=== PATIENT | male | born 1950 | race Caucasian/White ===

== ENCOUNTER 2018-08-12 11:21 | Observation (INO) | payer MEDICARE, BC ==
[2018-08-12 12:21] LABS: Hemoglobin 11.6 g/dL (14.0-18.0); Mean Corpuscular HGB CONC 32.1 g/dL (32.0-36.0); Mean Corpuscular Hemoglobin 29.9 pg (27.0-31.0); Mean Corpuscular Volume 93.1 fL (78.0-98.0); Mean Platelet Volume 9.7 fL (7.4-10.4); Platelet Count 224 thou/uL (130-400); RBC Distribution Width 14.8 % (11.5-14.5); Red Blood Cell (RBC) Count 3.86 mill/uL (4.70-6.10)
[2018-08-12 12:32] LABS: ALT (SGPT) 24 U/L (8-55); AST (SGOT) 35 U/L (5-34); Albumin 3.6 g/dL (3.4-4.8); Alkaline Phosphatase 131 U/L (40-150); Anion Gap 19 mmol/L (10-20); BUN (Urea Nitrogen) 100 mg/dL (8.4-25.7); Bilirubin, Total 0.3 mg/dL (0.2-1.2); Calc. Creatinine Clearance 0 mL/min (70-130); Calcium 9.7 mg/dL (7.8-10.44); Carbon Dioxide 18 mmol/L (23-31); Chloride 103 mmol/L (98-107); Estimated GFR-MDRD 19; Globulin 3.7 g/dL (2.4-3.5); Glucose 87 mg/dL (80-115); Potassium 3.9 mmol/L (3.5-5.1); Protein, Total 7.3 g/dL (5.8-8.1); Sodium 136 mmol/L (136-145)
[2018-08-12 12:46] LABS: Anisocytosis SLIGHT = 6-15 cells (100X) (0-5/hpf); Band 6 % (5-11); Lymphocytes 3 % (21-51); MDiff Complete? YES; Monocytes 2 % (0-10); Neutrophil 89 % (42-75); Platelet Morphology Comment Appears Adequate
--- NOTE | 2018-08-12 13:11 | RAD ---
PA AND LATERAL CHEST: Date: 08/12/18 HISTORY: Productive cough and fever. FINDINGS: Heart size within normal limits. There is some minimal parenchymal change in the lingula and a more c onfluent right upper lobe infiltrative process. IMPRESSION: Right upper lobe pneumonia. There is also possibly some early lingular infiltrate present. POS: TPC
[2018-08-12] MEDS ORDERED: cefTRIAXone\\ROCEPHIN 1 GM VIAL ONE (13:42)
[2018-08-12] MEDS ORDERED: Azithromycin 500 MG VIAL ONE (14:26)
[2018-08-12] MEDS ORDERED: HYDROcodone/Acetaminophen 5/325 mg Tablet PO PRN ×2 (15:49)
[2018-08-12] MEDS ORDERED: Ondansetron PF 4 MG/2 ML Vial IVP PRN ×2 (15:49→18:58)
[2018-08-12] MEDS ORDERED: Acetaminophen 325 MG TAB PO PRN (15:49)
[2018-08-12] MEDS ORDERED: Ondansetron ODT 4 MG TAB SL PRN (15:49)
[2018-08-12 16:44] VITALS: BMI 24.0
[2018-08-12] MEDS ORDERED: Ondansetron ODT 4 MG TAB PO PRN (18:58)
[2018-08-12] MEDS ORDERED: Benzonatate 100 MG CAP PO PRN (18:58)
[2018-08-12] MEDS ORDERED: LACTASE 3000 UNIT PO PRN (18:58)
[2018-08-12] MEDS ORDERED: Ibuprofen 200 MG TAB PO PRN (18:58)
[2018-08-12] MEDS ORDERED: Acetaminophen 500 MG TAB PO PRN (18:58)
[2018-08-12] MEDS ORDERED: Diabetic Tussin 200 MG/10 ML UDCUP PO PRN (18:58)
[2018-08-12] MEDS: Sodium Chloride 0.9% 1,000 ML IV SCH (20:10)
[2018-08-12] MEDS ORDERED: cefTRIAXone\\ROCEPHIN 1 GM in Sodium Chloride 0.9% 100 ML IVPB SCH (21:00)
--- NOTE | 2018-08-12 23:54 | HP ---
PRIMARY CARE PROVIDER: Dr. Brian Barakat. CHIEF COMPLAINT: Shortness of breath and cough. HISTORY OF PRESENT ILLNESS: This is a 67-year-old male, who presents to [facility] Emergency Department at the request of his primary care provider after concerns for general weakness, cough, and purulent sputum. The patient states he saw his primary care provider after developing fever, cough, and some chest pain in the right upper chest wall over the last 4 to 5 days. The patient was placed on a Z-Chirag by his primary care provider, which he took for several days. The patient states he continued to feel generally weak, ill, and with intermittent fevers up to 102.8 degrees Fahrenheit. The patient admits he received influenza vaccine this season as well he is current on his pneumonia vaccination. The patient denies any tobacco use or previous pneumonia. The patient denies any specific diarrhea, skin rashes, recent travel history or family members with similar symptoms. In the emergency room, patient underwent general evaluation including chest imaging showing right upper lobe infiltrate concerning for pneumonia. The patient received IV azithromycin and ceftriaxone in addition to 1 L of normal saline. PAST MEDICAL HISTORY: 1. Gastroesophageal reflux disease. 2. Ulcerative colitis. 3. Hypothyroidism. 4. Hyperlipidemia. PAST SURGICAL HISTORY: 1. Status post hemicolectomy due to stricture. 2. Status post bilateral cataract removal. CURRENT MEDICATIONS: 1. Levothyroxine 100 mcg p.o. daily. 2. Citalopram 20 mg p.o. daily. 3. Vitamin B12 1000 mcg p.o. daily. 4. Slow iron 142 mg p.o. b.i.d. 5. Lopid 600 mg p.o. b.i.d. 6. Multivitamin 1 tablet p.o. daily. 7. Lactaid 3000 units p.o. daily p.r.n. 8. Mesalamine 0.375 g four capsules p.o. daily. 9. Protonix 40 mg p.o. b.i.d. ALLERGIES: TO SUSAN INHIBITORS, CLINDAMYCIN, ZETIA, TAMIFLU, AND PENICILLIN. FAMILY HISTORY: No inheritable diseases per patient report. SOCIAL HISTORY: The patient resides in [place], [place]. Retired pharmacist. No current alcohol, tobacco, or illicit drug use. Functional of all activities of daily living. REVIEW OF SYSTEMS: CONSTITUTIONAL: Negative for weight loss or gain, ability to conduct usual activities. SKIN: Negative for rash, itching. EYES: Negative for double vision, pain. ENT/MOUTH: Negative for nose bleeding, neck stiffness, pain, tenderness. CARDIOVASCULAR: Negative for palpitations, dyspnea on exertion, orthopnea. RESPIRATORY: Negative for wheezing, hemoptysis, or night sweats. GASTROINTESTINAL: Negative for poor appetite, abdominal pain, heartburn, nausea, vomiting, constipation, or diarrhea. GENITOURINARY: Negative for urgency, frequency, dysuria, nocturia. MUSCULOSKELETAL: Negative for pain, swelling. NEUROLOGIC/PSYCHIATRIC: Negative for anxiety, depression. ALLERGY/IMMUNOLOGIC: Negative for skin rash, bleeding tendency. Otherwise, negative except as stated per HPI. PHYSICAL EXAMINATION: VITAL SIGNS: Currently, blood pressure 117/78, pulse 85, respiratory rate 16, temperature 97.5 degrees Fahrenheit, O2 saturation 97% on room air. GENERAL APPEARANCE: This is a 67-year-old male, alert and oriented x3, pleasant, conversant, smiling, in no acute distress. HEENT: Pupils are equal, round, reactive to light and accommodation. Extraocular muscles are intact. No scleral icterus. No conjunctival injection. Nares patent. OP is clear. Teeth in good repair. NECK: Supple. No cervical adenopathy. No thyromegaly. No carotid bruits. No JVD appreciated. Cervical spine with full active and passive range of motion. No meningeal signs noted. CHEST: Coarse breath sounds noted in the right upper chest. Left lung field is clear. CARDIOVASCULAR: S1 and S2 without noted murmur, rub, or gallop. ABDOMEN: Rounded, soft, nontender, and nondistended. Bowel sounds are positive in all 4 quadrants. There is no hepatosplenomegaly. No abdominal bruits. No rebound or guarding appreciated. EXTREMITIES: Warm and dry with fair turgor. No clubbing, cyanosis, or asymmetric edema appreciated. Pulses are palpable distally at the dorsalis pedis, posterior tibial, and popliteal arteries bilaterally. Capillary refill less than 2 seconds. NEUROLOGIC: Cranial nerves 2 through 12 are grossly intact. No focal or lateralizing signs appreciated. PERTINENT LABORATORY DATA AND X-RAY FINDINGS: Sodium 136, potassium 3.9, chloride 103, CO2 of 18, BUN 100, creatinine 3.31, estimated GFR of 19, glucose 87, calcium 9.7. AST 35, ALT of 24, alkaline phosphatase 131, albumin 3.6. CBC showed a white blood cell count of 15, hemoglobin 12, hematocrit 36, platelet count 224 with 89% neutrophils, 6% bands. Portable chest x-ray dated 08/12/2018 by my interpretation shows right upper lobe infiltrate consistent with pneumonia. ASSESSMENT AND PLAN: 1. Right upper lobe bacterial pneumonia. The patient will be placed in observation status on the medical floor. Suspect gram-positive cocci. Continue Rocephin 2 g IV q.24 hours with additional azithromycin 500 mg IV q.24 hours. Continue general pulmonary supportive management. 2. Acute kidney injury. Suspect multifactorial in addition to current infectious process. Initiate IV fluids with normal saline at 100 mL/h. Avoid nephrotoxic agents and limit contrast exposure. Repeat creatinine in the a.m. Consider Nephrology consultation if creatinine does not improve with general supportive management and IV fluids. 3. Chronic kidney disease stage 3. See #2 above. Repeat creatinine in the a.m. 4. Hypothyroidism. Continue levothyroxine 100 mcg p.o. daily. 5. Depression. Continue Celexa 20 mg p.o. daily. 6. Prophylaxis. SCDs while in bed. Protonix 40 mg p.o. b.i.d. CODE STATUS: Full. Surrogate medical decision maker is Puma Purdy. Job ID: [id number]
[2018-08-13] MEDS: Levothyroxine Sodium 100 MCG TAB PO SCH (05:27)
[2018-08-13] MEDS: Sodium Chloride 0.9% 1,000 ML IV SCH ×2 (05:28→16:54)
[2018-08-13 06:41] LABS: Anion Gap 15 mmol/L (10-20); BUN (Urea Nitrogen) 83 mg/dL (8.4-25.7); Calc. Creatinine Clearance 35 mL/min (70-130); Carbon Dioxide 15 mmol/L (23-31); Chloride 111 mmol/L (98-107); Estimated GFR-MDRD 26; Glucose 91 mg/dL (80-115); Potassium 4.1 mmol/L (3.5-5.1); Sodium 137 mmol/L (136-145)
[2018-08-13 06:48] LABS: Band 1 % (5-11); Eosinophils 1 % (0-10); Lymphocytes 13 % (21-51); MDiff Complete? YES; Mean Corpuscular HGB CONC 32.4 g/dL (32.0-36.0); Mean Corpuscular Volume 92.7 fL (78.0-98.0); Mean Platelet Volume 9.4 fL (7.4-10.4); Monocytes 3 % (0-10); Myelocyte 5 % (0-0); Neutrophil 77 % (42-75); Platelet Count 200 thou/uL (130-400); RBC Distribution Width 15.2 % (11.5-14.5); Red Blood Cell (RBC) Count 3.32 mill/uL (4.70-6.10); White Blood Cell (WBC) Count 8.7 thou/uL (4.8-10.8)
[2018-08-13] MEDS ORDERED: MESALAMINE PO SCH (09:00)
[2018-08-13] MEDS: Citalopram 20 MG TAB PO SCH (09:33)
[2018-08-13] MEDS: Cyanocobalamin (Vitamin B-12) 1,000 MCG TAB PO SCH (09:33)
[2018-08-13] MEDS: Gemfibrozil 600 MG TAB PO SCH ×2 (09:33→16:54)
[2018-08-13] MEDS ORDERED: Azithromycin 500 MG in Sodium Chloride 0.9% 250 ML 250 ML IVPB SCH (15:00)
[2018-08-13] MEDS ORDERED: cefTRIAXone\\ROCEPHIN 2 GM in Sodium Chloride 0.9% 100 ML IVPB SCH (16:00)
--- NOTE | 2018-08-13 16:49 | PRG ---
DATE OF SERVICE: 08/13/2018 SUBJECTIVE: The patient is a very pleasant 67-year-old male with past medical history significant for hypothyroidism, ulcerative colitis, GERD, and hyperlipidemia, who presented to [facility] Emergency Department at the request of his primary care provider, Dr. Brian Barakat, after the patient developed fever, cough, and pleuritic chest pain over the past 4 to 5 days. The patient has been admitted with right upper lobe community-acquired pneumonia. The patient has responded well to IV antibiotics and his white count is trending down. He is afebrile. He states that he feels much improved. He does not report any further cough. His appetite is good. He is breathing easily. No complaints at this time. OBJECTIVE: VITAL SIGNS: Blood pressure 124/86, O2 saturation 94% on room air, pulse 92, and respirations are 20. The patient is afebrile 98.3 degrees F. GENERAL: The patient is a thin male, lying in bed, no acute distress. NECK: Supple. No carotid bruits. No lymphadenopathy. No JVD. HEENT: Atraumatic and normocephalic. Mucous membranes are moist. CV: S1 and S2. Regular rate and rhythm. No appreciable murmurs, rubs, or gallops. LUNGS: Regular respiratory rate and pattern, overall clear to auscultation, mildly decreased vesicular breath sounds right upper and mid lung gao. ABDOMEN: Soft. Normal bowel sounds. Nontender. EXTREMITIES: No edema. +2 DP pulses bilaterally. SKIN: Warm and dry. No obvious rashes or abrasions. NEUROLOGIC: The patient is alert and oriented x3. Nonfocal. LABORATORY DATA: White blood cell count 8.7 and this is down from 15, hemoglobin 10, and hematocrit 30.8. Sodium 137, potassium 4.1, BUN 83, and creatinine 2.48 , which is down from 3.31. ASSESSMENT: 1. Community-acquired right upper lobe bacterial pneumonia. 2. Acute on chronic renal insufficiency, improving. Creatinine 2.48 today down from 3.31. 3. Chronic kidney disease stage 3. 4. Hypothyroidism. 5. Depression. PLAN: We will continue IV antibiotics and IV fluid for another day. Repeat labs in the morning. I anticipate discharge tomorrow. Continue DVT and GI prophylaxis. We will trend creatinine for another day. Care discussed with Dr. De La Rosa who agrees with the plan. Job ID: [id number] DAVI
[2018-08-14] MEDS: Sodium Chloride 0.9% 1,000 ML IV SCH (03:30)
[2018-08-14] MEDS: Levothyroxine Sodium 100 MCG TAB PO SCH (05:32)
[2018-08-14 07:33] LABS: Anion Gap 13 mmol/L (10-20); BUN (Urea Nitrogen) 53 mg/dL (8.4-25.7); Calc. Creatinine Clearance 51 mL/min (70-130); Calcium 8.6 mg/dL (7.8-10.44); Carbon Dioxide 15 mmol/L (23-31); Chloride 114 mmol/L (98-107); Estimated GFR-MDRD 40; Glucose 90 mg/dL (80-115); Potassium 3.8 mmol/L (3.5-5.1); Sodium 138 mmol/L (136-145)
[2018-08-14] MEDS ORDERED: Ferrous Sulfate 325 MG TAB PO SCH (08:00)
[2018-08-14] MEDS: Gemfibrozil 600 MG TAB PO SCH (08:00)
[2018-08-14] MEDS: Cyanocobalamin (Vitamin B-12) 1,000 MCG TAB PO SCH (08:01)
[2018-08-14] MEDS: Citalopram 20 MG TAB PO SCH (08:01)
[2018-08-14 08:15] LABS: Anion Gap 15 mmol/L (10-20); BUN (Urea Nitrogen) 52 mg/dL (8.4-25.7); Calc. Creatinine Clearance 49 mL/min (70-130); Carbon Dioxide 13 mmol/L (23-31); Chloride 115 mmol/L (98-107); Estimated GFR-MDRD 38; Glucose 90 mg/dL (80-115); Potassium 3.9 mmol/L (3.5-5.1); Sodium 139 mmol/L (136-145)
[2018-08-14 08:26] LABS: #Basophils 0.1 thou/uL (0.0-0.2); #Eosinphils 0.1 thou/uL (0.0-0.7); #Monocytes 0.5 thou/uL (0.11-0.59); #Neutrophils 4.2 thou/uL (1.40-6.50); %Eosinophils 1.6 % (0.0-10.0); %Lymphocytes 16.5 % (21.0-51.0); %Monocytes 8.3 % (0.0-10.0); %Neutrophils 72.5 % (42.0-75.0); Hemoglobin 9.9 g/dL (14.0-18.0); Mean Corpuscular HGB CONC 32.6 g/dL (32.0-36.0); Mean Corpuscular Hemoglobin 29.8 pg (27.0-31.0); Mean Corpuscular Volume 91.4 fL (78.0-98.0); Platelet Count 192 thou/uL (130-400); RBC Distribution Width 15.3 % (11.5-14.5); White Blood Cell (WBC) Count 5.9 thou/uL (4.8-10.8)
[2018-08-14 08:41] LABS: #Eosinphils 0.1 thou/uL (0.0-0.7); #Lymphocytes 0.8 thou/uL (1.20-3.40); #Monocytes 0.5 thou/uL (0.11-0.59); #Neutrophils 4.2 thou/uL (1.40-6.50); %Basophils 0.6 % (0.0-1.0); %Eosinophils 1.2 % (0.0-10.0); %Lymphocytes 14.1 % (21.0-51.0); Hemoglobin 9.4 g/dL (14.0-18.0); Mean Corpuscular HGB CONC 31.7 g/dL (32.0-36.0); Mean Corpuscular Hemoglobin 29.2 pg (27.0-31.0); Mean Corpuscular Volume 92.2 fL (78.0-98.0); Mean Platelet Volume 9.1 fL (7.4-10.4); Platelet Count 194 thou/uL (130-400); RBC Distribution Width 15.1 % (11.5-14.5); Red Blood Cell (RBC) Count 3.21 mill/uL (4.70-6.10); White Blood Cell (WBC) Count 5.6 thou/uL (4.8-10.8)
[2018-08-14 14:01] VITALS: BP 125/80; TEMP 98
--- NOTE | 2018-08-14 20:19 | DIS ---
DATE OF ADMISSION: 08/12/2018 DATE OF DISCHARGE: 08/14/2018 ALLERGIES: SUSAN INHIBITORS, CLINDAMYCIN, ZETIA, TAMIFLU, AND PENICILLIN. CHIEF COMPLAINT: Shortness of breath, cough, fever, and chills. FINAL DIAGNOSES: 1. Community-acquired right upper lobe bacterial pneumonia. 2. Acute on chronic renal insufficiency, presenting creatinine 3.31, discharge creatinine is baseline at 1.77. 3. Chronic kidney disease stage 3. 4. Hypothyroidism. 5. Depression. 6. Gastroesophageal reflux disease. 7. Ulcerative colitis, stable. PROCEDURES PERFORMED: None. LABORATORY RESULTS: White count on arrival to the hospital was 15,000 and now is 5.9, hemoglobin 9.9, and hematocrit 30.2. Sodium 139, potassium 3.9, chloride 115, carbon dioxide 13, anion gap 15, BUN 52, creatinine 1.77, GFR 38, glucose 90, AST 35, ALT 24, and alkaline phosphatase 131. IMAGING RESULTS: Chest x-ray performed on August 12, 2018, showed right upper lobe pneumonia with some possible early lingular infiltrate present. CONSULTATIONS: None. VITAL SIGNS: Blood pressure 125/78. The patient has been afebrile throughout his stay. Pulse is 88, respirations 20, and O2 saturation is 96%. HOSPITAL COURSE: The patient is a very pleasant 67-year-old male with past medical history significant for hypothyroidism, ulcerative colitis, GERD, and hyperlipidemia, who presented to [facility] at the behest of his primary care provider, Dr. Brian Barakat, after the patient developed fever, cough, and pleuritic chest pain over the past several days. The patient was initially treated with azithromycin; however, his symptoms continue to worsen with T-max of 101.6. On admission to the hospital, chest x-ray, as noted above, showed right upper lobe pneumonia. The patient was initiated on IV antibiotics with Rocephin and Zithromax, with good response. His white count trended down, and he remained afebrile throughout his stay. His presenting symptoms of cough, fever, and chills have resolved. The patient has remained hemodynamically stable. He denies any further cough. His appetite has been good. He denies any nausea or vomiting. He has ambulated the room without issue. He did have a mild nosebleed on the morning of this interview, but it did completely resolve. PHYSICAL EXAMINATION: GENERAL: The patient is a thin male, in no acute distress. Breathing easily on room air. HEENT: Atraumatic and normocephalic. Eye movements intact. Mucous membranes are moist. NECK: Supple. No lymphadenopathy. No JVD. No carotid bruits. Trachea is midline. RESPIRATORY: Regular respiratory rate and pattern. Overall clear to auscultation with no rhonchi, wheezes, or crackles, he does have mildly decreased vesicular breath sounds in the right upper and mid lung gao. ABDOMEN: Soft and nontender. Positive bowel sounds. EXTREMITIES: No edema. +2 DP pulses bilaterally. SKIN: Warm and dry. No obvious rashes or abrasions. NEUROLOGIC: The patient is alert and oriented x3. Nonfocal. CONDITION AT DISCHARGE: Stable. DISCHARGE MEDICATIONS: He will continue his home medications including; 1. Celexa 20 mg 1 tablet p.o. daily. 2. Vitamin B12 supplement 1000 mcg p.o. daily. 3. Ferrous sulfate 142 mg p.o. b.i.d. 4. Gemfibrozil 600 mg p.o. b.i.d. before meals. 5. Iron, C, B12, and folic acid supplement 1 tablet p.o. daily. 6. Lactase 3000 unit p.o. p.r.n. 7. Levothyroxine 100 mcg 1 tablet p.o. daily. 8. Mesalamine 0.375 g capsule extended release 4 capsules p.o. daily. 9. Pantoprazole 40 mg tablet 1 tablet p.o. b.i.d. 10. He will be discharged on levofloxacin 750 mg tablet 1 p.o. for the next 5 days. DISCHARGE DISPOSITION: Home. PLAN: The patient will continue his course of antibiotics for community-acquired pneumonia. He will continue Mucinex as well. The patient has been afebrile and feels well. He will follow up with his primary care provider, Dr. Brian Barakat. He will continue to monitor his symptoms and return to the hospital with any fever or chills. Job ID: [id number]
== END 2018-08-14 15:31 | disposition home or self-care (01) ==
LOC: ERS 11:21 → T4-A 15:34
PROVIDERS: ADMIT Family Medicine; ATTEND Family Medicine
DX: J15.9 Unspecified bacterial pneumonia (principal); N18.3 Chronic kidney disease, stage 3 (moderate); N17.9 Acute kidney failure, unspecified; E03.9 Hypothyroidism, unspecified; F32.9 Major depressive disorder, single episode, unspecified; K21.9 Gastro-esophageal reflux disease without esophagitis; K51.90 Ulcerative colitis, unspecified, without complications; E78.5 Hyperlipidemia, unspecified; Z88.8 Allergy status to other drugs, medicaments and biological substances; Z88.1 Allergy status to other antibiotic agents; Z88.0 Allergy status to penicillin; Z79.2 Long term (current) use of antibiotics; Z79.899 Other long term (current) drug therapy; Z98.890 Other specified postprocedural states
CPT/HCPCS: 71046; 80048 ×3; 80053; 85007; 85025 ×3; 85027; 94760; 96361 ×3; 96365; 96366; 96375; 99285; G0378 ×2; 36415; J0456; J0696; J7050

== ENCOUNTER 2021-10-09 10:01 | Inpatient (IN) | payer MEDICARE, BC ==
[2021-10-09] MEDS ORDERED: Furosemide 20 MG/2 ML VIAL ONE (11:01)
[2021-10-09] MEDS ORDERED: Furosemide 40 MG/4 ML VIAL ONE (11:01)
[2021-10-09 11:09] LABS: #Basophils 0.1 thou/uL (0.0-0.2); #Eosinphils 0.2 thou/uL (0.0-0.7); #Lymphocytes 0.6 thou/uL (1.20-3.40); #Monocytes 0.7 thou/uL (0.11-0.59); #Neutrophils 5.9 thou/uL (1.40-6.50); %Basophils 1.5 % (0.0-1.0); %Eosinophils 2.1 % (0.0-10.0); %Lymphocytes 8.5 % (21.0-51.0); %Monocytes 8.9 % (0.0-10.0); %Neutrophils 78.9 % (42.0-75.0); Hemoglobin 13.5 g/dL (14.0-18.0); Mean Corpuscular HGB CONC 31.4 g/dL (32.0-36.0); Mean Corpuscular Hemoglobin 30.8 pg (27.0-31.0); Mean Corpuscular Volume 97.9 fL (78.0-98.0); Mean Platelet Volume 8.7 fL (7.4-10.4); Platelet Count 285 thou/uL (130-400); RBC Distribution Width 15.5 % (11.5-14.5); Red Blood Cell (RBC) Count 4.39 mill/uL (4.70-6.10); White Blood Cell (WBC) Count 7.5 thou/uL (4.8-10.8)
[2021-10-09 11:20] LABS: INR-International Normal Ratio 1.3; Prothrombin Time 16.6 sec (12.0-14.7)
[2021-10-09 11:31] LABS: ALT (SGPT) 32 U/L (8-55); AST (SGOT) 65 U/L (5-34); Albumin 4.2 g/dL (3.4-4.8); Alkaline Phosphatase 121 U/L (40-110); Anion Gap 20 mmol/L (10-20); BUN (Urea Nitrogen) 18 mg/dL (8.4-25.7); Bilirubin, Total 0.7 mg/dL (0.2-1.2); Calc. Creatinine Clearance 0 mL/min (70-130); Calcium 9.1 mg/dL (7.8-10.44); Carbon Dioxide 18 mmol/L (23-31); Chloride 108 mmol/L (98-107); Globulin 3.4 g/dL (2.4-3.5); Glucose 97 mg/dL (83-110); Magnesium 2.3 mg/dL (1.6-2.6); Potassium 5.1 mmol/L (3.5-5.1); Protein, Total 7.6 g/dL (5.8-8.1); Sodium 141 mmol/L (136-145)
[2021-10-09 11:39] LABS: Bacteria/HPF None Seen HPF (None Seen); Bilirubin Negative (Negative); Blood, Urine Negative (Negative); Clarity Clear (Clear); Glucose, Urine (Dipstick) Normal (Negative); Ketone, Urine Negative (Negative); Leukocyte 25 Leu/uL (Negative); Nitrite Negative (Negative); Protein, Urine (Dipstick) 200 mg/dL (Neg-Trace); RBC/HPF 0-3 HPF (0-3); Specific Gravity, Urine 1.019 (1.002-1.036); Squamous Epithelial None Seen HPF (0-3); Urobilinogen Normal mg/dL (Less than 2)
[2021-10-09 12:01] LABS: CKMB 8.3 ng/mL (0-6.6)
[2021-10-09 14:41] VITALS: BMI 31.8
[2021-10-09 14:46] LABS: Troponin I 0.066 ng/mL (< 0.028)
[2021-10-09 16:43] LABS: Creatinine, Urine Less than 20.00 mg/dL (63-166); Protein, Urine Random Quant 42 mg/dL (1-14); Sodium, Urine 125 mmol/L (Not Available); Urea Nitrogen, Random Urine 108 mg/dl
[2021-10-09] MEDS: Gemfibrozil 600 MG TAB PO SCH (17:03)
[2021-10-09] MEDS: Furosemide 40 MG/4 ML VIAL SLOW IVP SCH (20:23)
[2021-10-09] MEDS: Sodium Bicarbonate Tab 325 MG TAB PO SCH (20:31)
[2021-10-09] MEDS: Heparin 5,000 UNITS/ML VIAL SC SCH (20:32)
[2021-10-09] MEDS: Acetaminophen 325 MG TAB PO PRN (20:38)
[2021-10-09 22:49] LABS: SARS-CoV-2 PCR by NAA Not Detected (NotDetected)
[2021-10-10 04:36] LABS: #Basophils 0.1 thou/uL (0.0-0.2); #Eosinphils 0.4 thou/uL (0.0-0.7); #Lymphocytes 0.7 thou/uL (1.20-3.40); #Monocytes 0.9 thou/uL (0.11-0.59); %Basophils 1.2 % (0.0-1.0); %Eosinophils 4.9 % (0.0-10.0); %Lymphocytes 10.4 % (21.0-51.0); %Monocytes 12.6 % (0.0-10.0); Hemoglobin 12.3 g/dL (14.0-18.0); Mean Corpuscular Hemoglobin 31.2 pg (27.0-31.0); Mean Corpuscular Volume 97.7 fL (78.0-98.0); Mean Platelet Volume 8.4 fL (7.4-10.4); Platelet Count 282 thou/uL (130-400); RBC Distribution Width 15.6 % (11.5-14.5); Red Blood Cell (RBC) Count 3.93 mill/uL (4.70-6.10); White Blood Cell (WBC) Count 7.1 thou/uL (4.8-10.8)
[2021-10-10] MEDS ORDERED: Electrolyte Replacement Protocol FS PRN (05:30)
[2021-10-10] MEDS ORDERED: Furosemide 40 MG/4 ML VIAL SLOW IVP SCH (06:00)
[2021-10-10 06:29] LABS: Albumin 3.4 g/dL (3.4-4.8)
[2021-10-10 06:30] LABS: Chloride 106 mmol/L (98-107); Sodium 142 mmol/L (136-145)
[2021-10-10 06:31] LABS: Calcium 8.6 mg/dL (7.8-10.44)
[2021-10-10 06:32] LABS: Globulin 2.2 g/dL (2.4-3.5); Glucose 97 mg/dL (83-110); Triglycerides 83 mg/dL (Less than 150)
[2021-10-10 06:33] LABS: Anion Gap 16 mmol/L (10-20); Carbon Dioxide 23 mmol/L (23-31)
[2021-10-10 06:34] LABS: Bilirubin, Total 0.6 mg/dL (0.2-1.2)
[2021-10-10 06:35] LABS: Alkaline Phosphatase 97 U/L (40-110); Calc. Creatinine Clearance 62 mL/min (70-130)
[2021-10-10 06:36] LABS: BUN (Urea Nitrogen) 20 mg/dL (8.4-25.7)
[2021-10-10 06:37] LABS: AST (SGOT) 27 U/L (5-34); Cardiac Risk 2.9 (Less than 4.5); Cholesterol 88 mg/dl (< 200 Desired); HDL Cholesterol 30 mg/dL (>60 Neg Risk); LDL Cholesterol, Calculated 41 mg/dL
[2021-10-10 06:38] LABS: ALT (SGPT) 22 U/L (8-55)
[2021-10-10 06:43] LABS: Potassium 2.9 mmol/L (3.5-5.1); Protein, Total 5.6 g/dL (5.8-8.1)
[2021-10-10] MEDS ORDERED: Magnesium 2 GM/50 ML(in water) 2 GM in Premix Bag 1 BAG IVPB SCH (06:45)
[2021-10-10] MEDS: Levothyroxine Sodium 100 MCG TAB PO SCH (07:09)
[2021-10-10] MEDS: Furosemide 40 MG/4 ML VIAL SLOW IVP SCH ×3 (07:10→21:51)
[2021-10-10] MEDS: Potassium Chloride 20 MEQ TAB PO SCH ×2 (07:23→13:51)
[2021-10-10] MEDS: Aspirin 81 mg Enteric Coated Tablet PO SCH (08:11)
[2021-10-10] MEDS: Citalopram 20 MG TAB PO SCH (08:11)
[2021-10-10] MEDS: Heparin 5,000 UNITS/ML VIAL SC SCH ×2 (08:12→20:54)
[2021-10-10] MEDS: Multivitamin W/ Minerals 1 TAB PO SCH (08:14)
[2021-10-10] MEDS: Sodium Bicarbonate Tab 325 MG TAB PO SCH ×2 (08:15→20:53)
[2021-10-10] MEDS ORDERED: Spironolactone 100 MG TAB PO SCH (08:15)
[2021-10-10] MEDS: Gemfibrozil 600 MG TAB PO SCH ×2 (08:19→19:37)
[2021-10-10] MEDS ORDERED: MESALAMINE 0.375 GM PO SCH (09:00)
[2021-10-10] MEDS ORDERED: Potassium Chloride 20 MEQ TAB PO SCH ×2 (14:00→22:00)
[2021-10-10] MEDS ORDERED: Polyethylene Glycol 3350 17 GM Packet PO PRN (16:26)
[2021-10-10] MEDS ORDERED: Sodium Chloride 0.65% Nasal 44 ML BOT EA NARE PRN (18:26)
[2021-10-10 18:54] LABS: Anion Gap 15 mmol/L (10-20); BUN (Urea Nitrogen) 22 mg/dL (8.4-25.7); Calc. Creatinine Clearance 60 mL/min (70-130); Calcium 9.1 mg/dL (7.8-10.44); Carbon Dioxide 29 mmol/L (23-31); Chloride 102 mmol/L (98-107); Glucose 134 mg/dL (83-110); Potassium 3.2 mmol/L (3.5-5.1); Sodium 143 mmol/L (136-145)
[2021-10-10] MEDS: Senokot S 8.6-50 MG TAB PO SCH (20:54)
[2021-10-11 04:50] LABS: #Basophils 0.1 thou/uL (0.0-0.2); #Eosinphils 0.3 thou/uL (0.0-0.7); #Lymphocytes 0.6 thou/uL (1.20-3.40); #Monocytes 0.9 thou/uL (0.11-0.59); #Neutrophils 5.7 thou/uL (1.40-6.50); %Basophils 1.4 % (0.0-1.0); %Eosinophils 4.1 % (0.0-10.0); %Lymphocytes 8.5 % (21.0-51.0); %Monocytes 11.1 % (0.0-10.0); %Neutrophils 74.9 % (42.0-75.0); Hemoglobin 12.8 g/dL (14.0-18.0); Mean Corpuscular HGB CONC 31.8 g/dL (32.0-36.0); Mean Corpuscular Hemoglobin 30.9 pg (27.0-31.0); Mean Platelet Volume 8.3 fL (7.4-10.4); Platelet Count 292 thou/uL (130-400); RBC Distribution Width 15.3 % (11.5-14.5); Red Blood Cell (RBC) Count 4.14 mill/uL (4.70-6.10); White Blood Cell (WBC) Count 7.6 thou/uL (4.8-10.8)
[2021-10-11] MEDS: Levothyroxine Sodium 100 MCG TAB PO SCH (05:06)
[2021-10-11] MEDS: Furosemide 40 MG/4 ML VIAL SLOW IVP SCH ×2 (05:06→14:14)
[2021-10-11 05:14] LABS: Anion Gap 18 mmol/L (10-20); BUN (Urea Nitrogen) 20 mg/dL (8.4-25.7); Calc. Creatinine Clearance 59 mL/min (70-130); Calcium 8.5 mg/dL (7.8-10.44); Carbon Dioxide 26 mmol/L (23-31); Chloride 101 mmol/L (98-107); Glucose 108 mg/dL (83-110); Magnesium 2.1 mg/dL (1.6-2.6); Phosphorus 3.1 mg/dL (2.3-4.7); Potassium 3.1 mmol/L (3.5-5.1); Sodium 142 mmol/L (136-145)
[2021-10-11] MEDS ORDERED: Potassium Chloride 20 MEQ TAB PO SCH (06:30)
[2021-10-11] MEDS: Potassium Chloride 20 MEQ TAB PO SCH ×3 (06:33→22:46)
[2021-10-11] MEDS: Citalopram 20 MG TAB PO SCH (08:51)
[2021-10-11] MEDS: Spironolactone 100 MG TAB PO SCH (08:51)
[2021-10-11] MEDS: Multivitamin W/ Minerals 1 TAB PO SCH (08:51)
[2021-10-11] MEDS: Aspirin 81 mg Enteric Coated Tablet PO SCH (08:52)
[2021-10-11] MEDS: Gemfibrozil 600 MG TAB PO SCH ×2 (08:52→18:07)
[2021-10-11] MEDS: Senokot S 8.6-50 MG TAB PO SCH ×2 (08:52→22:49)
[2021-10-11] MEDS: Heparin 5,000 UNITS/ML VIAL SC SCH ×2 (08:53→22:48)
[2021-10-11] MEDS: Sodium Bicarbonate Tab 325 MG TAB PO SCH ×2 (09:34→22:47)
[2021-10-11] MEDS ORDERED: Albumin 25% 25 GM/100 ML BOT IVPB STA (14:04)
[2021-10-11 17:23] LABS: Chloride 96 mmol/L (98-107); Potassium 3.4 mmol/L (3.5-5.1); Sodium 139 mmol/L (136-145)
[2021-10-11 17:24] LABS: Calcium 8.8 mg/dL (7.8-10.44); Glucose 130 mg/dL (83-110)
[2021-10-11 17:26] LABS: Anion Gap 17 mmol/L (10-20); Carbon Dioxide 29 mmol/L (23-31)
[2021-10-11 17:28] LABS: Calc. Creatinine Clearance 52 mL/min (70-130)
[2021-10-11 17:29] LABS: BUN (Urea Nitrogen) 22 mg/dL (8.4-25.7)
[2021-10-11] MEDS ORDERED: Tamsulosin HCl 0.4 MG CAP PO SCH (21:00)
[2021-10-12] MEDS: Levothyroxine Sodium 100 MCG TAB PO SCH (05:10)
[2021-10-12 05:37] LABS: #Eosinphils 0.4 thou/uL (0.0-0.7); #Lymphocytes 0.9 thou/uL (1.20-3.40); #Monocytes 0.8 thou/uL (0.11-0.59); #Neutrophils 4.3 thou/uL (1.40-6.50); %Basophils 0.3 % (0.0-1.0); %Eosinophils 6.8 % (0.0-10.0); %Lymphocytes 14.3 % (21.0-51.0); %Monocytes 12.3 % (0.0-10.0); %Neutrophils 66.3 % (42.0-75.0); Hemoglobin 13.2 g/dL (14.0-18.0); Mean Corpuscular HGB CONC 32.6 g/dL (32.0-36.0); Mean Corpuscular Hemoglobin 31.7 pg (27.0-31.0); Mean Corpuscular Volume 97.4 fL (78.0-98.0); Mean Platelet Volume 8.5 fL (7.4-10.4); Platelet Count 311 thou/uL (130-400); RBC Distribution Width 15.2 % (11.5-14.5); Red Blood Cell (RBC) Count 4.16 mill/uL (4.70-6.10); White Blood Cell (WBC) Count 6.5 thou/uL (4.8-10.8)
[2021-10-12 06:19] LABS: Anion Gap 16 mmol/L (10-20); BUN (Urea Nitrogen) 24 mg/dL (8.4-25.7); Calc. Creatinine Clearance 53 mL/min (70-130); Calcium 8.4 mg/dL (7.8-10.44); Carbon Dioxide 30 mmol/L (23-31); Chloride 101 mmol/L (98-107); Glucose 117 mg/dL (83-110); Magnesium 2.2 mg/dL (1.6-2.6); Potassium 3.6 mmol/L (3.5-5.1); Sodium 143 mmol/L (136-145)
[2021-10-12] MEDS: Heparin 5,000 UNITS/ML VIAL SC SCH ×2 (08:24→20:29)
[2021-10-12] MEDS: Sodium Bicarbonate Tab 325 MG TAB PO SCH (08:25)
[2021-10-12] MEDS: Multivitamin W/ Minerals 1 TAB PO SCH (08:25)
[2021-10-12] MEDS: Potassium Chloride 20 MEQ TAB PO SCH (08:25)
[2021-10-12] MEDS: Senokot S 8.6-50 MG TAB PO SCH ×2 (08:25→20:30)
[2021-10-12] MEDS: Gemfibrozil 600 MG TAB PO SCH ×2 (08:26→16:25)
[2021-10-12] MEDS: Spironolactone 100 MG TAB PO SCH (08:26)
[2021-10-12] MEDS: Aspirin 81 mg Enteric Coated Tablet PO SCH (08:26)
[2021-10-12] MEDS: Citalopram 20 MG TAB PO SCH (08:26)
[2021-10-12] MEDS ORDERED: Furosemide 40 MG/4 ML VIAL SLOW IVP SCH (09:00)
[2021-10-12] MEDS: Carvedilol 3.125 MG TAB PO SCH (16:25)
[2021-10-13] MEDS: Levothyroxine Sodium 100 MCG TAB PO SCH (05:11)
[2021-10-13 06:06] LABS: Anion Gap 15 mmol/L (10-20); BUN (Urea Nitrogen) 29 mg/dL (8.4-25.7); Calc. Creatinine Clearance 56 mL/min (70-130); Calcium 8.8 mg/dL (7.8-10.44); Carbon Dioxide 31 mmol/L (23-31); Chloride 99 mmol/L (98-107); Glucose 109 mg/dL (83-110); Potassium 4.2 mmol/L (3.5-5.1); Sodium 141 mmol/L (136-145)
[2021-10-13] MEDS: Aspirin 81 mg Enteric Coated Tablet PO SCH (08:13)
[2021-10-13] MEDS: Citalopram 20 MG TAB PO SCH (08:13)
[2021-10-13] MEDS: Heparin 5,000 UNITS/ML VIAL SC SCH ×2 (08:14→21:05)
[2021-10-13] MEDS: Carvedilol 3.125 MG TAB PO SCH ×2 (08:14→17:45)
[2021-10-13] MEDS: Spironolactone 100 MG TAB PO SCH (08:14)
[2021-10-13] MEDS: Gemfibrozil 600 MG TAB PO SCH ×2 (08:14→17:45)
[2021-10-13] MEDS: Multivitamin W/ Minerals 1 TAB PO SCH (08:14)
[2021-10-13] MEDS: Senokot S 8.6-50 MG TAB PO SCH ×2 (08:29→21:03)
[2021-10-13] MEDS ORDERED: Torsemide 20 MG TAB PO SCH (09:00)
[2021-10-14] MEDS: Acetaminophen 325 MG TAB PO PRN ×2 (02:05→17:51)
[2021-10-14] MEDS: Levothyroxine Sodium 100 MCG TAB PO SCH (05:09)
[2021-10-14 05:51] LABS: Anion Gap 16 mmol/L (10-20); BUN (Urea Nitrogen) 33 mg/dL (8.4-25.7); Calc. Creatinine Clearance 51 mL/min (70-130); Calcium 8.6 mg/dL (7.8-10.44); Carbon Dioxide 29 mmol/L (23-31); Chloride 97 mmol/L (98-107); Glucose 123 mg/dL (83-110); Magnesium 2.3 mg/dL (1.6-2.6); Potassium 4.1 mmol/L (3.5-5.1); Sodium 138 mmol/L (136-145)
[2021-10-14] MEDS ORDERED: Torsemide 20 MG TAB PO SCH (09:00)
[2021-10-14] MEDS: Gemfibrozil 600 MG TAB PO SCH ×2 (09:09→17:46)
[2021-10-14] MEDS: Aspirin 81 mg Enteric Coated Tablet PO SCH (09:09)
[2021-10-14] MEDS: Spironolactone 100 MG TAB PO SCH (09:09)
[2021-10-14] MEDS: Carvedilol 3.125 MG TAB PO SCH ×2 (09:09→17:47)
[2021-10-14] MEDS: Multivitamin W/ Minerals 1 TAB PO SCH (09:10)
[2021-10-14] MEDS: Citalopram 20 MG TAB PO SCH (09:10)
[2021-10-14] MEDS: Heparin 5,000 UNITS/ML VIAL SC SCH ×2 (09:10→22:11)
[2021-10-14] MEDS: Senokot S 8.6-50 MG TAB PO SCH ×2 (09:23→22:10)
[2021-10-15 04:53] LABS: #Basophils 0.1 thou/uL (0.0-0.2); #Eosinphils 0.6 thou/uL (0.0-0.7); #Monocytes 0.7 thou/uL (0.11-0.59); #Neutrophils 3.3 thou/uL (1.40-6.50); %Basophils 1.3 % (0.0-1.0); %Eosinophils 10.5 % (0.0-10.0); %Lymphocytes 17.8 % (21.0-51.0); %Monocytes 11.7 % (0.0-10.0); %Neutrophils 58.7 % (42.0-75.0); Hemoglobin 13.7 g/dL (14.0-18.0); Mean Corpuscular HGB CONC 31.1 g/dL (32.0-36.0); Mean Corpuscular Hemoglobin 30.6 pg (27.0-31.0); Mean Corpuscular Volume 98.4 fL (78.0-98.0); Mean Platelet Volume 8.3 fL (7.4-10.4); Platelet Count 352 thou/uL (130-400); RBC Distribution Width 14.7 % (11.5-14.5); Red Blood Cell (RBC) Count 4.48 mill/uL (4.70-6.10); White Blood Cell (WBC) Count 5.7 thou/uL (4.8-10.8)
[2021-10-15 05:17] LABS: Anion Gap 16 mmol/L (10-20); BUN (Urea Nitrogen) 39 mg/dL (8.4-25.7); Calc. Creatinine Clearance 51 mL/min (70-130); Calcium 9.1 mg/dL (7.8-10.44); Carbon Dioxide 27 mmol/L (23-31); Chloride 98 mmol/L (98-107); Glucose 111 mg/dL (83-110); Magnesium 2.5 mg/dL (1.6-2.6); Potassium 4.2 mmol/L (3.5-5.1); Sodium 137 mmol/L (136-145)
[2021-10-15] MEDS: Levothyroxine Sodium 100 MCG TAB PO SCH (05:21)
[2021-10-15] MEDS: Carvedilol 3.125 MG TAB PO SCH ×2 (08:54→16:29)
[2021-10-15] MEDS: Gemfibrozil 600 MG TAB PO SCH ×2 (08:54→16:29)
[2021-10-15] MEDS: Heparin 5,000 UNITS/ML VIAL SC SCH ×2 (08:55→20:38)
[2021-10-15] MEDS: Aspirin 81 mg Enteric Coated Tablet PO SCH (08:55)
[2021-10-15] MEDS: Citalopram 20 MG TAB PO SCH (08:55)
[2021-10-15] MEDS: Multivitamin W/ Minerals 1 TAB PO SCH (08:55)
[2021-10-15] MEDS: Senokot S 8.6-50 MG TAB PO SCH ×2 (09:42→20:38)
[2021-10-15] MEDS ORDERED: Communication Order-Pharmacy FS SCH (12:30)
[2021-10-15] MEDS: Acetaminophen 325 MG TAB PO PRN (16:47)
[2021-10-16 05:00] LABS: Anion Gap 15 mmol/L (10-20); BUN (Urea Nitrogen) 40 mg/dL (8.4-25.7); Calc. Creatinine Clearance 52 mL/min (70-130); Carbon Dioxide 24 mmol/L (23-31); Chloride 101 mmol/L (98-107); Potassium 4.1 mmol/L (3.5-5.1); Sodium 136 mmol/L (136-145)
[2021-10-16 05:01] LABS: Calcium 8.9 mg/dL (7.8-10.44); Glucose 141 mg/dL (83-110)
[2021-10-16] MEDS: Levothyroxine Sodium 100 MCG TAB PO SCH (05:31)
[2021-10-16] MEDS: Aspirin 81 mg Enteric Coated Tablet PO SCH (05:32)
[2021-10-16] MEDS: Carvedilol 3.125 MG TAB PO SCH ×2 (05:32→17:51)
[2021-10-16] MEDS: Gemfibrozil 600 MG TAB PO SCH ×2 (05:32→17:51)
[2021-10-16] MEDS: Citalopram 20 MG TAB PO SCH (05:32)
[2021-10-16] MEDS ORDERED: Acetylcysteine 10% 100 MG/ML 30 ml Vial PO SCH (07:15)
[2021-10-16] MEDS: Heparin 5,000 UNITS/ML VIAL SC SCH ×2 (07:24→20:51)
[2021-10-16] MEDS: Senokot S 8.6-50 MG TAB PO SCH ×2 (07:24→20:54)
[2021-10-16] MEDS: Multivitamin W/ Minerals 1 TAB PO SCH (07:24)
[2021-10-16] MEDS ORDERED: Heparin 10,000 UNITS/ 10 ML VIAL ONE (07:30)
[2021-10-16] MEDS ORDERED: Verapamil 5 MG/2 ML VIAL ONE (07:30)
[2021-10-16] MEDS ORDERED: Nitroglycerin 100MG/250ML BOT 250 ML ONE (07:30)
[2021-10-16] MEDS: Sodium Chloride 0.9% 1,000 ML IV SCH ×2 (07:32→18:34)
[2021-10-16] MEDS ORDERED: Midazolam HCl 2 mg/2 ml Vial ONE (08:57)
[2021-10-16] MEDS ORDERED: Acetaminophen/Codeine 30-300mg Tablet PO PRN ×2 (09:55)
[2021-10-16] MEDS ORDERED: Sodium Chloride 0.9% 200 ML IV PRN (09:55)
[2021-10-16] MEDS ORDERED: Nitroglycerin 0.4 MG TAB (25 Tab Bottle) SL PRN (09:55)
[2021-10-16 12:03] LABS: SARS-CoV-2 PCR by NAA Not Detected (NotDetected)
[2021-10-16] MEDS ORDERED: Iopamidol 370 76% 100 ML VIAL ONE (14:32)
[2021-10-17] MEDS: Sodium Chloride 0.9% 1,000 ML IV SCH (04:43)
[2021-10-17 04:55] LABS: Anion Gap 13 mmol/L (10-20); BUN (Urea Nitrogen) 37 mg/dL (8.4-25.7); Calc. Creatinine Clearance 59 mL/min (70-130); Calcium 8.8 mg/dL (7.8-10.44); Carbon Dioxide 24 mmol/L (23-31); Chloride 106 mmol/L (98-107); Glucose 170 mg/dL (83-110); Potassium 4.5 mmol/L (3.5-5.1); Sodium 138 mmol/L (136-145)
[2021-10-17] MEDS: Levothyroxine Sodium 100 MCG TAB PO SCH (05:07)
[2021-10-17] MEDS: Gemfibrozil 600 MG TAB PO SCH ×2 (08:29→17:26)
[2021-10-17] MEDS: Senokot S 8.6-50 MG TAB PO SCH ×2 (08:29→20:14)
[2021-10-17] MEDS: Citalopram 20 MG TAB PO SCH (08:30)
[2021-10-17] MEDS: Aspirin 81 mg Enteric Coated Tablet PO SCH (08:30)
[2021-10-17] MEDS: Spironolactone 100 MG TAB PO SCH (08:32)
[2021-10-17] MEDS: Multivitamin W/ Minerals 1 TAB PO SCH (08:32)
[2021-10-17] MEDS: Carvedilol 3.125 MG TAB PO SCH ×2 (08:32→17:26)
[2021-10-17] MEDS: Heparin 5,000 UNITS/ML VIAL SC SCH ×2 (08:38→20:12)
[2021-10-17] MEDS ORDERED: Tamsulosin HCl 0.4 MG CAP PO SCH (13:00)
[2021-10-17] MEDS: Acetaminophen 325 MG TAB PO PRN (21:52)
[2021-10-18 05:21] LABS: Anion Gap 13 mmol/L (10-20); BUN (Urea Nitrogen) 38 mg/dL (8.4-25.7); Calc. Creatinine Clearance 57 mL/min (70-130); Calcium 8.7 mg/dL (7.8-10.44); Carbon Dioxide 21 mmol/L (23-31); Chloride 108 mmol/L (98-107); Glucose 123 mg/dL (83-110); Potassium 4.3 mmol/L (3.5-5.1); Sodium 138 mmol/L (136-145)
[2021-10-18 06:12] LABS: Magnesium 2.3 mg/dL (1.6-2.6)
[2021-10-18] MEDS: Levothyroxine Sodium 100 MCG TAB PO SCH (06:40)
[2021-10-18] MEDS: Carvedilol 3.125 MG TAB PO SCH ×2 (08:24→18:15)
[2021-10-18] MEDS: Gemfibrozil 600 MG TAB PO SCH ×2 (08:24→18:15)
[2021-10-18] MEDS: Spironolactone 100 MG TAB PO SCH (08:24)
[2021-10-18] MEDS: Aspirin 81 mg Enteric Coated Tablet PO SCH (08:24)
[2021-10-18] MEDS: Tamsulosin HCl 0.4 MG CAP PO SCH (08:25)
[2021-10-18] MEDS: Senokot S 8.6-50 MG TAB PO SCH ×2 (08:25→20:13)
[2021-10-18] MEDS: Heparin 5,000 UNITS/ML VIAL SC SCH ×2 (08:25→20:13)
[2021-10-18] MEDS: Citalopram 20 MG TAB PO SCH (08:25)
[2021-10-18] MEDS: Multivitamin W/ Minerals 1 TAB PO SCH (08:26)
[2021-10-18] MEDS: Acetaminophen 325 MG TAB PO PRN (20:12)
[2021-10-18] MEDS: Sodium Bicarbonate Tab 325 MG TAB PO SCH (20:13)
[2021-10-19 05:37] LABS: Anion Gap 16 mmol/L (10-20); BUN (Urea Nitrogen) 37 mg/dL (8.4-25.7); Calc. Creatinine Clearance 53 mL/min (70-130); Calcium 9.3 mg/dL (7.8-10.44); Carbon Dioxide 22 mmol/L (23-31); Chloride 106 mmol/L (98-107); Glucose 104 mg/dL (83-110); Potassium 4.7 mmol/L (3.5-5.1); Sodium 139 mmol/L (136-145)
[2021-10-19] MEDS: Gemfibrozil 600 MG TAB PO SCH (06:07)
[2021-10-19] MEDS: Levothyroxine Sodium 100 MCG TAB PO SCH (06:07)
[2021-10-19] MEDS: Multivitamin W/ Minerals 1 TAB PO SCH (08:49)
[2021-10-19] MEDS: Aspirin 81 mg Enteric Coated Tablet PO SCH (08:49)
[2021-10-19] MEDS: Tamsulosin HCl 0.4 MG CAP PO SCH (08:49)
[2021-10-19] MEDS: Spironolactone 100 MG TAB PO SCH (08:49)
[2021-10-19] MEDS: Carvedilol 3.125 MG TAB PO SCH (08:49)
[2021-10-19] MEDS: Citalopram 20 MG TAB PO SCH (08:49)
[2021-10-19] MEDS: Sodium Bicarbonate Tab 325 MG TAB PO SCH (08:50)
[2021-10-19] MEDS: Heparin 5,000 UNITS/ML VIAL SC SCH (08:50)
[2021-10-19] MEDS: Senokot S 8.6-50 MG TAB PO SCH (08:50)
[2021-10-19 13:13] VITALS: BP 111/62; TEMP 98
== END 2021-10-19 14:45 | disposition home health service (06) | DRG 286 ==
LOC: ERS 10:01 → 2SW 12:36 → OBSVTOIN 10-10 18:24
PROVIDERS: ADMIT Family Medicine; ATTEND Internal Medicine
PROC: 4A023N7 Measurement of Cardiac Sampling and Pressure, Left Heart, Percutaneous Approach (ICD-10-PCS; principal; 2021-10-16)
PROC: B2111ZZ Fluoroscopy of Multiple Coronary Arteries using Low Osmolar Contrast (ICD-10-PCS; 2021-10-16)
PROC: B2151ZZ Fluoroscopy of Left Heart using Low Osmolar Contrast (ICD-10-PCS; 2021-10-16)
DX: I13.0 Hypertensive heart and chronic kidney disease with heart failure and stage 1 through stage 4 chronic kidney disease, or unspecified chronic kidney disease (principal); Z20.822 Contact with and (suspected) exposure to COVID-19; I50.43 Acute on chronic combined systolic (congestive) and diastolic (congestive) heart failure; I47.2 Ventricular tachycardia; N17.9 Acute kidney failure, unspecified; E87.2 Acidosis; K51.90 Ulcerative colitis, unspecified, without complications; L97.828 Non-pressure chronic ulcer of other part of left lower leg with other specified severity; L97.818 Non-pressure chronic ulcer of other part of right lower leg with other specified severity; I25.10 Atherosclerotic heart disease of native coronary artery without angina pectoris; R33.9 Retention of urine, unspecified; E87.6 Hypokalemia; E83.42 Hypomagnesemia; N18.30 Chronic kidney disease, stage 3 unspecified; K74.60 Unspecified cirrhosis of liver; E03.9 Hypothyroidism, unspecified; F41.9 Anxiety disorder, unspecified; E78.5 Hyperlipidemia, unspecified; K21.9 Gastro-esophageal reflux disease without esophagitis; I25.82 Chronic total occlusion of coronary artery; F32.A Depression, unspecified; R77.8 Other specified abnormalities of plasma proteins; I25.5 Ischemic cardiomyopathy; R79.89 Other specified abnormal findings of blood chemistry; D63.1 Anemia in chronic kidney disease; I95.89 Other hypotension; Z88.1 Allergy status to other antibiotic agents; Z88.8 Allergy status to other drugs, medicaments and biological substances; Z88.0 Allergy status to penicillin; Z79.899 Other long term (current) drug therapy; Z79.890 Hormone replacement therapy; Z90.49 Acquired absence of other specified parts of digestive tract; Z98.42 Cataract extraction status, left eye; Z98.41 Cataract extraction status, right eye
CPT/HCPCS: 36415; 71045; 76700; 76856; 80048; 80053; 80061; 81003; 81015; 82553; 82570; 83735; 83880; 84100; 84156; 84300; 84443; 84484; 84540; 85025; 85610; 85730; 93005; 93306; 93458; 93798; 96374; 99152; J1644; J1940; J2250; J3475; J7050; J7608; P9047; Q9967; U0003; U0005

== ENCOUNTER 2021-11-07 11:55 | Inpatient (IN) | payer MEDICARE, BC ==
[2021-11-07 12:36] LABS: #Basophils 0.1 thou/uL (0.0-0.2); #Eosinphils 0.4 thou/uL (0.0-0.7); #Lymphocytes 1.1 thou/uL (1.20-3.40); #Monocytes 0.5 thou/uL (0.11-0.59); #Neutrophils 6.2 thou/uL (1.40-6.50); %Eosinophils 5.4 % (0.0-10.0); %Lymphocytes 12.6 % (21.0-51.0); %Monocytes 6.3 % (0.0-10.0); %Neutrophils 74.7 % (42.0-75.0); Mean Corpuscular HGB CONC 31.4 g/dL (32.0-36.0); Mean Corpuscular Hemoglobin 30.1 pg (27.0-31.0); Mean Corpuscular Volume 95.8 fL (78.0-98.0); Mean Platelet Volume 8.3 fL (7.4-10.4); Platelet Count 210 thou/uL (130-400); RBC Distribution Width 14.4 % (11.5-14.5); Red Blood Cell (RBC) Count 4.64 mill/uL (4.70-6.10); White Blood Cell (WBC) Count 8.3 thou/uL (4.8-10.8)
[2021-11-07 13:03] LABS: ALT (SGPT) 8 U/L (8-55); AST (SGOT) 11 U/L (5-34); Albumin 4.2 g/dL (3.4-4.8); Alkaline Phosphatase 144 U/L (40-110); Anion Gap 15 mmol/L (10-20); BUN (Urea Nitrogen) 61 mg/dL (8.4-25.7); Bilirubin, Total 0.4 mg/dL (0.2-1.2); Calc. Creatinine Clearance 0 mL/min (70-130); Calcium 9.6 mg/dL (7.8-10.44); Carbon Dioxide 17 mmol/L (23-31); Chloride 109 mmol/L (98-107); Globulin 2.9 g/dL (2.4-3.5); Glucose 130 mg/dL (83-110); Potassium 5.4 mmol/L (3.5-5.1); Protein, Total 7.1 g/dL (5.8-8.1); Sodium 136 mmol/L (136-145)
[2021-11-07] MEDS ORDERED: Sodium Bicarbonate Tab 325 MG TAB PO SCH (13:45)
[2021-11-07] MEDS ORDERED: Acetaminophen 325 MG TAB PO PRN (15:00)
[2021-11-07] MEDS ORDERED: Ondansetron PF 4 MG/2 ML Vial IVP PRN (15:00)
[2021-11-07 16:00] VITALS: BMI 28.5
[2021-11-07 16:28] LABS: Troponin I 0.029 ng/mL (< 0.028)
[2021-11-07] MEDS ORDERED: Sodium Bicarbonate 150 MEQ in Sterile Water Injection 1,000 ML IV SCH (16:45)
[2021-11-07 19:55] LABS: Anion Gap 17 mmol/L (10-20); BUN (Urea Nitrogen) 61 mg/dL (8.4-25.7); Calc. Creatinine Clearance 38 mL/min (70-130); Calcium 9.2 mg/dL (7.8-10.44); Carbon Dioxide 16 mmol/L (23-31); Chloride 108 mmol/L (98-107); Glucose 134 mg/dL (83-110); Potassium 5.9 mmol/L (3.5-5.1); Sodium 135 mmol/L (136-145)
[2021-11-07 19:57] LABS: Troponin I 0.023 ng/mL (< 0.028)
[2021-11-07] MEDS ORDERED: Dextrose 50% Abboject 50 ML SYRINGE SLOW IVP SCH (21:00)
[2021-11-07] MEDS ORDERED: Insulin Regular 300 UNITS/3 ML VIAL IVP SCH (21:00)
[2021-11-07] MEDS ORDERED: LOKELMA 10 GM PACKET PO SCH (21:00)
[2021-11-07] MEDS: Heparin 5,000 UNITS/ML VIAL SC SCH (21:52)
[2021-11-08 04:53] LABS: #Basophils 0.1 thou/uL (0.0-0.2); #Eosinphils 0.3 thou/uL (0.0-0.7); #Lymphocytes 1.1 thou/uL (1.20-3.40); #Monocytes 0.6 thou/uL (0.11-0.59); #Neutrophils 4.5 thou/uL (1.40-6.50); %Basophils 0.8 % (0.0-1.0); %Eosinophils 4.6 % (0.0-10.0); %Lymphocytes 16.3 % (21.0-51.0); %Monocytes 9.2 % (0.0-10.0); %Neutrophils 69.1 % (42.0-75.0); Hemoglobin 12.4 g/dL (14.0-18.0); Mean Corpuscular HGB CONC 32.1 g/dL (32.0-36.0); Mean Corpuscular Hemoglobin 30.5 pg (27.0-31.0); Mean Platelet Volume 9.2 fL (7.4-10.4); Platelet Count 171 thou/uL (130-400); RBC Distribution Width 14.2 % (11.5-14.5); Red Blood Cell (RBC) Count 4.05 mill/uL (4.70-6.10); White Blood Cell (WBC) Count 6.6 thou/uL (4.8-10.8)
[2021-11-08 05:15] LABS: Anion Gap 15 mmol/L (10-20); BUN (Urea Nitrogen) 61 mg/dL (8.4-25.7); Calc. Creatinine Clearance 43 mL/min (70-130); Calcium 8.9 mg/dL (7.8-10.44); Carbon Dioxide 19 mmol/L (23-31); Chloride 109 mmol/L (98-107); Glucose 79 mg/dL (83-110); Potassium 4.9 mmol/L (3.5-5.1); Sodium 138 mmol/L (136-145)
[2021-11-08] MEDS ORDERED: Carvedilol 3.125 MG TAB PO SCH (08:30)
[2021-11-08] MEDS: Heparin 5,000 UNITS/ML VIAL SC SCH ×2 (09:33→20:35)
[2021-11-08] MEDS: Carvedilol 3.125 MG TAB PO SCH (16:54)
[2021-11-09 05:00] LABS: Anion Gap 15 mmol/L (10-20); BUN (Urea Nitrogen) 52 mg/dL (8.4-25.7); Calc. Creatinine Clearance 51 mL/min (70-130); Calcium 8.8 mg/dL (7.8-10.44); Carbon Dioxide 19 mmol/L (23-31); Chloride 106 mmol/L (98-107); Glucose 101 mg/dL (83-110); Potassium 4.5 mmol/L (3.5-5.1); Sodium 135 mmol/L (136-145)
[2021-11-09] MEDS: Carvedilol 3.125 MG TAB PO SCH ×2 (09:36→17:44)
[2021-11-09] MEDS: Heparin 5,000 UNITS/ML VIAL SC SCH (09:36)
[2021-11-09 15:33] VITALS: BP 113/65; TEMP 97.8
== END 2021-11-09 19:51 | disposition home or self-care (01) | DRG 683 ==
LOC: ERS 11:55 → 2NO 14:00 → OBSVTOIN 11-08 18:29
PROVIDERS: ADMIT Internal Medicine; ATTEND Internal Medicine
DX: N17.9 Acute kidney failure, unspecified (principal); I50.22 Chronic systolic (congestive) heart failure; E87.2 Acidosis; I13.0 Hypertensive heart and chronic kidney disease with heart failure and stage 1 through stage 4 chronic kidney disease, or unspecified chronic kidney disease; Z20.822 Contact with and (suspected) exposure to COVID-19; I25.10 Atherosclerotic heart disease of native coronary artery without angina pectoris; E03.9 Hypothyroidism, unspecified; E87.5 Hyperkalemia; N18.30 Chronic kidney disease, stage 3 unspecified; K52.9 Noninfective gastroenteritis and colitis, unspecified; K21.9 Gastro-esophageal reflux disease without esophagitis; E78.5 Hyperlipidemia, unspecified; F32.A Depression, unspecified; E86.9 Volume depletion, unspecified; I25.5 Ischemic cardiomyopathy; T46.5X5A Adverse effect of other antihypertensive drugs, initial encounter; T50.1X5A Adverse effect of loop [high-ceiling] diuretics, initial encounter; Z88.1 Allergy status to other antibiotic agents; Z88.0 Allergy status to penicillin; Z88.8 Allergy status to other drugs, medicaments and biological substances; Z79.899 Other long term (current) drug therapy; Z79.890 Hormone replacement therapy; Z79.82 Long term (current) use of aspirin; Z90.49 Acquired absence of other specified parts of digestive tract; Z98.42 Cataract extraction status, left eye; Z98.41 Cataract extraction status, right eye
CPT/HCPCS: 36415; 36416; 71045; 80048; 80053; 83880; 84484; 85025; 87077; 87086; 87186; 93005; A4217; J1644; J1815; J7999; U0003; U0005

== ENCOUNTER 2021-11-17 10:33 | Outpatient (CLI) | payer MEDICARE, BC | END 2021-11-17 10:34 | disposition home or self-care (01) | LOC: BICULT 10:33 | PROVIDERS: ATTEND Urology | DX: N13.30 Unspecified hydronephrosis (principal); N32.89 Other specified disorders of bladder; N28.89 Other specified disorders of kidney and ureter | CPT/HCPCS: 76770 ==

== ENCOUNTER 2021-11-24 14:30 | Inpatient (IN) | payer MEDICARE, BC ==
[2021-11-25 17:45] LABS: Hemoglobin 12.4 g/dL (13.5-17.5); Mean Corpuscular HGB CONC 32.7 g/dL (32.0-36.0); Mean Corpuscular Volume 88.6 fl (81.2-95.1); Mean Platelet Volume 10.9 fl (7.4-10.4); Platelet Count 271 10x3/uL (150-450); RBC Distribution Width 15.8 % (11.5-14.5); Red Blood Cell (RBC) Count 4.28 10x6/uL (4.32-5.72); White Blood Cell (WBC) Count 7.1 10x3/uL (3.5-10.5)
[2021-11-25 18:05] LABS: Anion Gap 18 mmol/L (10-20); BUN (Urea Nitrogen) 50 mg/dL (8.4-25.7); Calc. Creatinine Clearance 0 mL/min (70-130); Carbon Dioxide 19 mmol/L (23-31); Chloride 104 mmol/L (98-107); Estimated GFR 33; Glucose 124 mg/dL (83-110); Potassium 4.3 mmol/L (3.5-5.1); Sodium 137 mmol/L (136-145)
[2021-11-26] MEDS ORDERED: Albumin 5% 500 ML ONE ×2 (06:17→10:41)
[2021-11-26] MEDS ORDERED: Dexmedetomidine 200 MCG/2 ML VIAL ONE (06:52)
[2021-11-26] MEDS ORDERED: Midazolam HCl 5 mg/5 ml Vial ONE (06:52)
[2021-11-26] MEDS ORDERED: fentaNYL Citrate/PF 100 MCG/2 ML SYRINGE ONE (06:52)
[2021-11-26] MEDS ORDERED: Milrinone 10 MG/10 ML VIAL ONE (06:52)
[2021-11-26] MEDS ORDERED: Heparin 10,000 UNITS/1 ML VIAL 30,000 UNITS in Sodium Chloride 0.9% 1,000 ML IVPB SCH (07:00)
[2021-11-26] MEDS ORDERED: Lidocaine 1% MPF 2 ML VIAL ONE (07:07)
[2021-11-26] MEDS ORDERED: Ondansetron ODT 4 MG TAB ONE (07:07)
[2021-11-26] MEDS ORDERED: Levofloxacin 500 mg/D5W 100 ml Premix Bag ONE (07:26)
[2021-11-26] MEDS ORDERED: Nitroglycerin 50 MG/250 ML BOT ONE (07:34)
[2021-11-26] MEDS ORDERED: Heparin 5,000 UNITS/ML VIAL ONE (07:34)
[2021-11-26] MEDS ORDERED: Lidocaine 1% PF 5 ML VIAL ONE (07:34)
[2021-11-26] MEDS ORDERED: Heparin 30,000 units/30 ml VIAL ONE (07:34)
[2021-11-26] MEDS ORDERED: Sodium Bicarb 50 MEQ/50 ML Abboject 8.4% SYRINGE ONE (07:34)
[2021-11-26] MEDS ORDERED: PROPOFOL 200 MG/20 ML VIAL ONE ×2 (07:34→17:01)
[2021-11-26] MEDS ORDERED: Dexamethasone 20 MG/5 ML VIAL ONE (07:34)
[2021-11-26] MEDS ORDERED: Norepinephrine 4 MG/4 ML VIAL ONE (07:34)
[2021-11-26] MEDS ORDERED: Mannitol 12.5 GM/50 ML ONE (07:34)
[2021-11-26] MEDS ORDERED: Ondansetron PF 4 MG/2 ML Vial ONE (07:34)
[2021-11-26] MEDS ORDERED: Cardioplegic Soln 1,000 ML BAG ONE (07:34)
[2021-11-26] MEDS ORDERED: Thrombin 5000 UNITS/5 ML VIAL ONE (07:34)
[2021-11-26] MEDS ORDERED: Protamine Sulfate 250 MG/25 ML VIAL ONE (07:34)
[2021-11-26] MEDS ORDERED: Papaverine 60 MG/2 ML VIAL ONE (07:34)
[2021-11-26] MEDS ORDERED: Lidocaine 2% PF 100 mg/5 ml Syringe ONE (07:34)
[2021-11-26] MEDS ORDERED: Vecuronium 10 MG VIAL ONE (07:34)
[2021-11-26] MEDS ORDERED: Aminocaproic Acid 5 GM/20 ML VIAL ONE (07:34)
[2021-11-26] MEDS ORDERED: Magnesium Sulfate 1 GM/2 ML VIAL ONE (07:34)
[2021-11-26] MEDS ORDERED: Calcium Chloride 1 GM/10 ML Abboject SYRINGE ONE (07:34)
[2021-11-26] MEDS ORDERED: HYDROcodone/Acetaminophen 5/325 mg Tablet PO PRN ×2 (11:24)
[2021-11-26] MEDS ORDERED: Fentanyl 100 MCG/2 ML VIAL SLOW IVP PRN ×2 (11:24)
[2021-11-26] MEDS ORDERED: niCARdipine 25 MG in Sodium Chloride 0.9% 250 ML 250 ML IVPB PRN (11:24)
[2021-11-26] MEDS ORDERED: Guaifenesin DM 100-10/5 ML UDCUP PO PRN (11:24)
[2021-11-26] MEDS ORDERED: Bisacodyl 5 MG TAB PO PRN (11:24)
[2021-11-26] MEDS ORDERED: Promethazine HCl 25 MG/ML VIAL IM PRN (11:24)
[2021-11-26] MEDS ORDERED: Morphine 2 MG/ML VIAL SLOW IVP PRN (11:24)
[2021-11-26] MEDS ORDERED: Post-Op Insulin Drip Protocol IVPB ONE (11:24)
[2021-11-26] MEDS ORDERED: Mag-Al 1200 mg/1200 mg/30 ML UDCUP PO PRN (11:24)
[2021-11-26] MEDS ORDERED: Norepinephrine 8 MG/0.9% NS 250 ML IVPB PRN (11:24)
[2021-11-26] MEDS ORDERED: hydrALAZINE 20 MG/ML VIAL SLOW IVP PRN (11:24)
[2021-11-26] MEDS ORDERED: Hetastarch 6% 500 ML 500 ML IVPB PRN (11:24)
[2021-11-26] MEDS ORDERED: Bisacodyl 10 MG SUPP PR PRN (11:24)
[2021-11-26] MEDS ORDERED: Ondansetron PF 4 MG/2 ML Vial IVP PRN (11:24)
[2021-11-26] MEDS ORDERED: DOPamine 400 MG/D5W 250 ML 250 ML IVPB PRN (11:24)
[2021-11-26] MEDS ORDERED: Nitroglycerin 50 MG/250 ML BOT 250 ML IVPB PRN (11:24)
[2021-11-26] MEDS ORDERED: Lactated Ringer's 1,000 ML IV SCH (11:30)
[2021-11-26 11:37] LABS: Actual Bicarbonate (HCO3a) 21.3 mEq/L (22-28); Base Excess (BEa) -4.2 mEq/L (-2.0 to +3.0); CO2 Tension 40.7 mmHg (35.0-45.0); Calcium, Ionized (arterial) 1.05 mmol/L (1.12-1.30); Carboxyhemoglobin (COHb) 0.2 gm% (0.0-3.0); Hemoglobin (Hb) 9.9 g/dL (14.0-18.0); O2 Tension (PaO2), arterial 241.7 mmHg (> 70.0); Potassium - ABG Lab 4.76 mmol/L (3.70-5.30); pH, Arterial 7.34 (7.35-7.45)
[2021-11-26 11:40] LABS: ALV-art Gradient 135.225 mmHg (0-20); Puncture Site Arterial Line
[2021-11-26 11:58] LABS: Hemoglobin 9.6 g/dL (14.0-18.0); Mean Corpuscular HGB CONC 32.3 g/dL (32.0-36.0); Mean Corpuscular Hemoglobin 30.5 pg (27.0-31.0); Mean Corpuscular Volume 94.6 fL (78.0-98.0); Mean Platelet Volume 8.5 fL (7.4-10.4); Platelet Count 175 thou/uL (130-400); RBC Distribution Width 14.8 % (11.5-14.5); Red Blood Cell (RBC) Count 3.13 mill/uL (4.70-6.10)
[2021-11-26 12:03] VITALS: BMI 31.2
[2021-11-26 12:04] LABS: Glucose 137 mg/dL (83-110)
[2021-11-26 12:05] LABS: INR-International Normal Ratio 1.5
[2021-11-26 12:06] LABS: PTT 76.8 sec (22.9-36.1)
[2021-11-26 12:10] LABS: Anion Gap 18 mmol/L (10-20); BUN (Urea Nitrogen) 44 mg/dL (8.4-25.7); Calc. Creatinine Clearance 56 mL/min (70-130); Calcium 7.7 mg/dL (7.8-10.44); Carbon Dioxide 18 mmol/L (23-31); Chloride 109 mmol/L (98-107); Estimated GFR 41; Glucose 136 mg/dL (83-110); Potassium 4.9 mmol/L (3.5-5.1); Sodium 140 mmol/L (136-145)
[2021-11-26 12:16] LABS: Band 29 % (5-11); Lymphocytes 1 % (21-51); MDiff Complete? YES; Metamyelocyte 1 % (0-0); Monocytes 1 % (0-10); Myelocyte 1 % (0-0); Neutrophil 66 % (42-75); Ovalocytes SLIGHT = 2-5 cells (100X) (0-1/hpf); Platelet Morphology Comment Appears Adequate; Polychromasia SLIGHT = 2-3 cells (100X) (0-2/hpf); Reactive Lymphocytes 1 % (0-10)
[2021-11-26] MEDS: Insulin Regular 300 UNITS/3 ML VIAL SC PRN ×3 (12:20→20:39)
[2021-11-26] MEDS ORDERED: Dextrose 5% in Water 1,000 ML IV PRN (12:30)
[2021-11-26] MEDS ORDERED: Dextrose 50% Abboject 50 ML SYRINGE SLOW IVP PRN (12:30)
[2021-11-26] MEDS ORDERED: HUMULIN R 100 UNITS in Sodium Chloride 0.9% 100 ML IVPB SCH (12:30)
[2021-11-26 14:40] LABS: Actual Bicarbonate (HCO3a) 16.9 mEq/L (22-28); Base Excess (BEa) -9.3 mEq/L (-2.0 to +3.0); Carboxyhemoglobin (COHb) 0.3 gm% (0.0-3.0); O2 Tension (PaO2), arterial 135.9 mmHg (> 70.0); Potassium - ABG Lab 4.63 mmol/L (3.70-5.30); pH, Arterial 7.27 (7.35-7.45)
[2021-11-26 14:45] LABS: Puncture Site Arterial Line
[2021-11-26] MEDS: Sodium Bicarbonate Tab 325 MG TAB PO SCH ×2 (15:10→20:50)
[2021-11-26] MEDS ORDERED: Sodium Bicarb 50 MEQ/50 ML VIAL IVP SCH (16:00)
[2021-11-26] MEDS ORDERED: Sodium Bicarb 50 MEQ/50 ML VIAL ONE (16:04)
[2021-11-26] MEDS ORDERED: Phenylephrine 10 MG/ML VIAL ONE (16:29)
[2021-11-26] MEDS ORDERED: Midazolam HCl 2 mg/2 ml Vial ONE (16:29)
[2021-11-26] MEDS ORDERED: Rocuronium Bromide 10 MG/ML (10ML VIAL) ONE (17:01)
[2021-11-26] MEDS ORDERED: PHENYLEPHRINE-NS 100 MCG/ML 10 ML SYRINGE ONE (17:01)
[2021-11-26] MEDS ORDERED: Ventilator Sedation Protocol 1 EACH FS SCH (19:01)
[2021-11-26] MEDS ORDERED: Propofol BOLUS 1,000 MG/100 ML VIAL IV PRN (19:15)
[2021-11-26] MEDS ORDERED: fentaNYL Citrate/PF 2,000 MCG in Sodium Chloride 0.9% 60 ML IV SCH (19:15)
[2021-11-26] MEDS ORDERED: DISCONTINUE PREVIOUS NARCOTIC PAIN MEDICATIONS AND BENZODIAZEPINES FS SCH (19:15)
[2021-11-26] MEDS ORDERED: Morphine 4 MG/ML VIAL SLOW IVP PRN (19:15)
[2021-11-26] MEDS ORDERED: Lorazepam 2 MG/ML VIAL SLOW IVP PRN (19:15)
[2021-11-26] MEDS ORDERED: Fentanyl BOLUS 250 ML IVPB PRN (19:15)
[2021-11-26] MEDS: Sodium Bicarbonate 70 MEQ in Sodium Chloride 0.45% 1,000 ML IV SCH (19:34)
[2021-11-26 20:12] LABS: Actual Bicarbonate (HCO3a) 16.5 mEq/L (22-28); Base Excess (BEa) -9.4 mEq/L (-2.0 to +3.0); CO2 Tension 36.1 mmHg (35.0-45.0); Calcium, Ionized (arterial) 1.08 mmol/L (1.12-1.30); Carboxyhemoglobin (COHb) 0.5 gm% (0.0-3.0); Hemoglobin (Hb) 7.9 g/dL (14.0-18.0); Potassium - ABG Lab 4.53 mmol/L (3.70-5.30); pH, Arterial 7.28 (7.35-7.45)
[2021-11-26 20:14] LABS: ALV-art Gradient 163.375 mmHg (0-20); Puncture Site Arterial Line
[2021-11-26] MEDS: Propofol 1,000 MG/100 ML VIAL IV PRN (20:39)
[2021-11-26] MEDS: Famotidine/PF 20 mg/2ml Vial SLOW IVP SCH (20:39)
[2021-11-26] MEDS ORDERED: Sodium Bicarbonate Tab 325 MG TAB PO SCH (21:00)
[2021-11-26 22:59] LABS: Potassium 4.4 mmol/L (3.5-5.1)
[2021-11-26 23:06] LABS: Albumin 3.3 g/dL (3.4-4.8); Anion Gap 20 mmol/L (10-20); BUN (Urea Nitrogen) 44 mg/dL (8.4-25.7); BUN/Creatinine Ratio 26.83; Calc. Creatinine Clearance 60 mL/min (70-130); Calcium 7.8 mg/dL (7.8-10.44); Carbon Dioxide 18 mmol/L (23-31); Chloride 110 mmol/L (98-107); Estimated GFR 44; Glucose 121 mg/dL (83-110); Phosphorus 4.8 mg/dL (2.3-4.7); Potassium 4.5 mmol/L (3.5-5.1); Sodium 143 mmol/L (136-145)
[2021-11-26 23:17] LABS: Hemoglobin 8.1 g/dL (14.0-18.0); Platelet Count 120 thou/uL (130-400)
[2021-11-27] MEDS: Propofol 1,000 MG/100 ML VIAL IV PRN (04:47)
[2021-11-27 05:02] LABS: Anion Gap 18 mmol/L (10-20); BUN (Urea Nitrogen) 43 mg/dL (8.4-25.7); Calc. Creatinine Clearance 58 mL/min (70-130); Calcium 8.1 mg/dL (7.8-10.44); Carbon Dioxide 21 mmol/L (23-31); Chloride 110 mmol/L (98-107); Estimated GFR 42; Glucose 98 mg/dL (83-110); Sodium 145 mmol/L (136-145)
[2021-11-27] MEDS: Sodium Bicarbonate 70 MEQ in Sodium Chloride 0.45% 1,000 ML IV SCH ×2 (05:34→11:36)
[2021-11-27] MEDS: Levothyroxine Sodium 100 MCG TAB PO SCH ×2 (05:45→07:31)
[2021-11-27 05:51] LABS: #Lymphocytes 0.7 thou/uL (1.20-3.40); #Monocytes 1.2 thou/uL (0.11-0.59); #Neutrophils 8.2 thou/uL (1.40-6.50); %Basophils 0.1 % (0.0-1.0); %Eosinophils 0.2 % (0.0-10.0); %Lymphocytes 6.6 % (21.0-51.0); %Monocytes 11.8 % (0.0-10.0); %Neutrophils 81.3 % (42.0-75.0); Hemoglobin 7.5 g/dL (14.0-18.0); Mean Corpuscular HGB CONC 32.1 g/dL (32.0-36.0); Mean Corpuscular Hemoglobin 30.4 pg (27.0-31.0); Mean Corpuscular Volume 94.6 fL (78.0-98.0); Mean Platelet Volume 8.8 fL (7.4-10.4); Platelet Count 144 thou/uL (130-400); RBC Distribution Width 14.4 % (11.5-14.5); Red Blood Cell (RBC) Count 2.48 mill/uL (4.70-6.10); White Blood Cell (WBC) Count 10.1 thou/uL (4.8-10.8)
[2021-11-27 06:43] LABS: Actual Bicarbonate (HCO3a) 19.6 mEq/L (22-28); CO2 Tension 34.1 mmHg (35.0-45.0); Calcium, Ionized (arterial) 1.08 mmol/L (1.12-1.30); Carboxyhemoglobin (COHb) 1.1 gm% (0.0-3.0); Hemoglobin (Hb) 7.7 g/dL (14.0-18.0); O2 Tension (PaO2), arterial 77.1 mmHg (> 70.0); Potassium - ABG Lab 3.86 mmol/L (3.70-5.30); pH, Arterial 7.38 (7.35-7.45)
[2021-11-27 06:44] LABS: ALV-art Gradient 79.915 mmHg (0-20); Puncture Site Arterial Line
[2021-11-27] MEDS: Famotidine/PF 20 mg/2ml Vial SLOW IVP SCH ×2 (07:31→20:00)
[2021-11-27] MEDS: Acetaminophen 325 MG TAB PO PRN ×3 (07:31→19:59)
[2021-11-27] MEDS: Tamsulosin HCl 0.4 MG CAP PO SCH (11:31)
[2021-11-27] MEDS: Aspirin Chewable 81 MG TAB PO SCH (11:31)
[2021-11-27] MEDS: Sodium Bicarbonate Tab 325 MG TAB PO SCH ×3 (11:35→20:00)
[2021-11-27] MEDS ORDERED: Insulin Glargine 30 UNITS/0.3 ML VIAL SC PRN (12:20)
[2021-11-27] MEDS ORDERED: DOBUTamine 500 mg/250 ml 250 ML ONE (16:58)
[2021-11-27 17:14] LABS: Hemoglobin 8.4 g/dL (14.0-18.0)
[2021-11-28] MEDS: Acetaminophen 325 MG TAB PO PRN (01:28)
[2021-11-28] MEDS: Sodium Bicarbonate 70 MEQ in Sodium Chloride 0.45% 1,000 ML IV SCH (04:16)
[2021-11-28 04:58] LABS: Anion Gap 13 mmol/L (10-20); BUN (Urea Nitrogen) 44 mg/dL (8.4-25.7); Calc. Creatinine Clearance 54 mL/min (70-130); Carbon Dioxide 25 mmol/L (23-31); Chloride 105 mmol/L (98-107); Estimated GFR 38; Glucose 149 mg/dL (83-110); Potassium 3.3 mmol/L (3.5-5.1); Sodium 140 mmol/L (136-145)
[2021-11-28 06:00] LABS: #Lymphocytes 0.7 thou/uL (1.20-3.40); #Monocytes 1.6 thou/uL (0.11-0.59); #Neutrophils 11.3 thou/uL (1.40-6.50); %Basophils 0.2 % (0.0-1.0); %Eosinophils 0.2 % (0.0-10.0); %Lymphocytes 5.2 % (21.0-51.0); %Monocytes 11.4 % (0.0-10.0); %Neutrophils 83.1 % (42.0-75.0); Hemoglobin 7.8 g/dL (14.0-18.0); Mean Corpuscular HGB CONC 33.9 g/dL (32.0-36.0); Mean Corpuscular Hemoglobin 31.7 pg (27.0-31.0); Mean Corpuscular Volume 93.5 fL (78.0-98.0); Platelet Count 92 thou/uL (130-400); Platelet Morphology Comment Appears Adequate; RBC Distribution Width 14.6 % (11.5-14.5); Red Blood Cell (RBC) Count 2.45 mill/uL (4.70-6.10); White Blood Cell (WBC) Count 13.6 thou/uL (4.8-10.8)
[2021-11-28] MEDS: Levothyroxine Sodium 100 MCG TAB PO SCH (06:19)
[2021-11-28] MEDS: DOBUTamine 500 mg/250 ml 500 MG in Premix Bag 1 BAG IVPB SCH ×2 (06:19→23:48)
[2021-11-28] MEDS ORDERED: Potassium Chloride 20 MEQ in Premix Bag 1 BAG IVPB SCH (07:15)
[2021-11-28 08:56] LABS: Magnesium 2.3 mg/dL (1.6-2.6)
[2021-11-28] MEDS ORDERED: Furosemide 40 MG/4 ML VIAL SLOW IVP SCH (09:00)
[2021-11-28] MEDS: Potassium Chloride 8 MEQ TAB PO SCH (09:55)
[2021-11-28] MEDS: Aspirin Chewable 81 MG TAB PO SCH (09:55)
[2021-11-28] MEDS: Tamsulosin HCl 0.4 MG CAP PO SCH (09:56)
[2021-11-28] MEDS: Famotidine/PF 20 mg/2ml Vial SLOW IVP SCH ×2 (10:10→20:40)
[2021-11-28] MEDS: Sodium Bicarbonate Tab 325 MG TAB PO SCH ×3 (10:10→20:40)
[2021-11-28 17:09] LABS: Hemoglobin 7.8 g/dL (14.0-18.0)
[2021-11-29 04:33] LABS: #Lymphocytes 0.6 thou/uL (1.20-3.40); #Monocytes 1.2 thou/uL (0.11-0.59); #Neutrophils 10.2 thou/uL (1.40-6.50); %Basophils 0.1 % (0.0-1.0); %Eosinophils 0.3 % (0.0-10.0); %Lymphocytes 5.2 % (21.0-51.0); %Monocytes 10.2 % (0.0-10.0); %Neutrophils 84.3 % (42.0-75.0); Mean Corpuscular HGB CONC 33.8 g/dL (32.0-36.0); Mean Corpuscular Hemoglobin 31.2 pg (27.0-31.0); Mean Corpuscular Volume 92.3 fL (78.0-98.0); Mean Platelet Volume 9.5 fL (7.4-10.4); Platelet Count 98 thou/uL (130-400); RBC Distribution Width 14.1 % (11.5-14.5); White Blood Cell (WBC) Count 12.1 thou/uL (4.8-10.8)
[2021-11-29 04:51] LABS: ALT (SGPT) 12 U/L (8-55); AST (SGOT) 37 U/L (5-34); Alkaline Phosphatase 72 U/L (40-110); Anion Gap 15 mmol/L (10-20); BUN (Urea Nitrogen) 43 mg/dL (8.4-25.7); Bilirubin, Total 0.8 mg/dL (0.2-1.2); Calc. Creatinine Clearance 54 mL/min (70-130); Calcium 8.2 mg/dL (7.8-10.44); Carbon Dioxide 24 mmol/L (23-31); Chloride 104 mmol/L (98-107); Estimated GFR 38; Globulin 2.2 g/dL (2.4-3.5); Glucose 111 mg/dL (83-110); Potassium 3.2 mmol/L (3.5-5.1); Protein, Total 5.2 g/dL (5.8-8.1); Sodium 140 mmol/L (136-145)
[2021-11-29] MEDS ORDERED: Potassium Chloride 20 MEQ TAB PO SCH (07:00)
[2021-11-29] MEDS ORDERED: Metolazone 5 MG TAB PO SCH (07:15)
[2021-11-29] MEDS: Levothyroxine Sodium 100 MCG TAB PO SCH (07:26)
[2021-11-29] MEDS ORDERED: Potassium Chloride 20 MEQ in Premix Bag 1 BAG IVPB SCH (07:30)
[2021-11-29] MEDS: Potassium Chloride 8 MEQ TAB PO SCH (08:08)
[2021-11-29] MEDS: Aspirin Chewable 81 MG TAB PO SCH (09:25)
[2021-11-29] MEDS: Tamsulosin HCl 0.4 MG CAP PO SCH (09:25)
[2021-11-29] MEDS: Sodium Bicarbonate Tab 325 MG TAB PO SCH ×3 (09:25→21:38)
[2021-11-29] MEDS: Furosemide 40 MG/4 ML VIAL SLOW IVP SCH (14:18)
[2021-11-29] MEDS ORDERED: Spironolactone 100 MG TAB PO SCH (15:00)
[2021-11-30] MEDS: Levothyroxine Sodium 100 MCG TAB PO SCH (06:05)
[2021-11-30] MEDS: Furosemide 40 MG/4 ML VIAL SLOW IVP SCH (06:09)
[2021-11-30 06:33] LABS: Anion Gap 15 mmol/L (10-20); BUN (Urea Nitrogen) 39 mg/dL (8.4-25.7); Calc. Creatinine Clearance 56 mL/min (70-130); Carbon Dioxide 26 mmol/L (23-31); Chloride 100 mmol/L (98-107); Estimated GFR 40; Glucose 100 mg/dL (83-110); Sodium 138 mmol/L (136-145)
[2021-11-30 06:44] LABS: #Basophils 0.1 thou/uL (0.0-0.2); #Eosinphils 0.2 thou/uL (0.0-0.7); #Lymphocytes 0.6 thou/uL (1.20-3.40); #Neutrophils 8.5 thou/uL (1.40-6.50); %Basophils 0.5 % (0.0-1.0); %Lymphocytes 5.6 % (21.0-51.0); %Monocytes 9.6 % (0.0-10.0); %Neutrophils 82.2 % (42.0-75.0); Hemoglobin 8.4 g/dL (14.0-18.0); Mean Corpuscular HGB CONC 33.5 g/dL (32.0-36.0); Mean Corpuscular Hemoglobin 31.5 pg (27.0-31.0); Mean Corpuscular Volume 94.2 fL (78.0-98.0); Mean Platelet Volume 9.9 fL (7.4-10.4); Platelet Count 109 thou/uL (130-400); RBC Distribution Width 14.6 % (11.5-14.5); Red Blood Cell (RBC) Count 2.67 mill/uL (4.70-6.10); White Blood Cell (WBC) Count 10.3 thou/uL (4.8-10.8)
[2021-11-30] MEDS: Potassium Chloride 20 MEQ TAB PO SCH ×3 (07:24→15:08)
[2021-11-30] MEDS: Spironolactone 100 MG TAB PO SCH (07:24)
[2021-11-30] MEDS: Sodium Bicarbonate Tab 325 MG TAB PO SCH ×3 (09:02→20:19)
[2021-11-30] MEDS: Aspirin Chewable 81 MG TAB PO SCH (09:02)
[2021-11-30] MEDS: Tamsulosin HCl 0.4 MG CAP PO SCH (09:02)
[2021-11-30] MEDS ORDERED: Bisacodyl 5 MG TAB PO PRN (10:09)
[2021-11-30] MEDS ORDERED: Zolpidem Tartrate 5 MG TAB PO PRN (10:09)
[2021-11-30] MEDS ORDERED: Bisacodyl 10 MG SUPP PR PRN (10:09)
[2021-11-30] MEDS ORDERED: Milk Of Magnesia 30 ML UDCUP PO PRN (10:09)
[2021-11-30] MEDS ORDERED: Mineral Oil ENEMA PR PRN (10:09)
[2021-11-30] MEDS ORDERED: Mag-Al 1200 mg/1200 mg/30 ML UDCUP PO PRN (10:09)
[2021-11-30] MEDS ORDERED: Nitroglycerin 0.4 MG TAB (25 Tab Bottle) SL PRN (10:09)
[2021-11-30] MEDS ORDERED: diphenhydrAMINE 25 MG CAP PO PRN (10:09)
[2021-11-30] MEDS ORDERED: Guaifenesin DM 100-10/5 ML UDCUP PO PRN (10:09)
[2021-11-30] MEDS ORDERED: Metolazone 5 MG TAB PO SCH (10:15)
[2021-11-30] MEDS ORDERED: Potassium Chloride 10 MEQ in Premix Bag 1 BAG IVPB SCH (10:15)
[2021-11-30 16:35] LABS: Anion Gap 15 mmol/L (10-20); BUN (Urea Nitrogen) 42 mg/dL (8.4-25.7); Calc. Creatinine Clearance 50 mL/min (70-130); Calcium 8.6 mg/dL (7.8-10.44); Carbon Dioxide 27 mmol/L (23-31); Chloride 99 mmol/L (98-107); Estimated GFR 35; Glucose 144 mg/dL (83-110); Potassium 4.4 mmol/L (3.5-5.1); Sodium 137 mmol/L (136-145)
[2021-11-30] MEDS: Furosemide 40 MG TAB PO SCH (20:19)
[2021-11-30] MEDS: Acetaminophen 325 MG TAB PO PRN (23:26)
[2021-12-01] MEDS: Levothyroxine Sodium 100 MCG TAB PO SCH (05:48)
[2021-12-01 08:04] LABS: Albumin 2.9 g/dL (3.4-4.8); Anion Gap 15 mmol/L (10-20); BUN (Urea Nitrogen) 45 mg/dL (8.4-25.7); Calc. Creatinine Clearance 50 mL/min (70-130); Calcium 8.4 mg/dL (7.8-10.44); Carbon Dioxide 26 mmol/L (23-31); Chloride 101 mmol/L (98-107); Estimated GFR 35; Glucose 132 mg/dL (83-110); Phosphorus 2.4 mg/dL (2.3-4.7); Potassium 3.8 mmol/L (3.5-5.1); Sodium 138 mmol/L (136-145)
[2021-12-01] MEDS: Aspirin 325 mg Enteric Coated Tablet PO SCH (09:10)
[2021-12-01] MEDS: Tamsulosin HCl 0.4 MG CAP PO SCH (09:10)
[2021-12-01] MEDS: Furosemide 40 MG TAB PO SCH (09:10)
[2021-12-01] MEDS: Spironolactone 100 MG TAB PO SCH (09:10)
[2021-12-01] MEDS: Sodium Bicarbonate Tab 325 MG TAB PO SCH ×3 (09:10→21:12)
[2021-12-01] MEDS: Acetaminophen 325 MG TAB PO PRN (21:13)
[2021-12-02 05:06] LABS: Albumin 3.1 g/dL (3.4-4.8); Anion Gap 15 mmol/L (10-20); BUN (Urea Nitrogen) 50 mg/dL (8.4-25.7); BUN/Creatinine Ratio 23.36; Calc. Creatinine Clearance 47 mL/min (70-130); Calcium 8.7 mg/dL (7.8-10.44); Carbon Dioxide 26 mmol/L (23-31); Chloride 101 mmol/L (98-107); Estimated GFR 32; Glucose 114 mg/dL (83-110); Phosphorus 3.4 mg/dL (2.3-4.7); Sodium 138 mmol/L (136-145)
[2021-12-02] MEDS: Levothyroxine Sodium 100 MCG TAB PO SCH (06:26)
[2021-12-02] MEDS: Acetaminophen 325 MG TAB PO PRN ×2 (06:38→21:35)
[2021-12-02] MEDS: Tamsulosin HCl 0.4 MG CAP PO SCH (09:05)
[2021-12-02] MEDS: Spironolactone 100 MG TAB PO SCH (09:05)
[2021-12-02] MEDS: Sodium Bicarbonate Tab 325 MG TAB PO SCH ×3 (09:05→21:33)
[2021-12-02] MEDS: Aspirin 325 mg Enteric Coated Tablet PO SCH (09:06)
[2021-12-02] MEDS ORDERED: Carvedilol 3.125 MG TAB PO SCH (12:15)
[2021-12-02] MEDS: Carvedilol 3.125 MG TAB PO SCH (21:34)
[2021-12-03] MEDS: Levothyroxine Sodium 100 MCG TAB PO SCH (05:51)
[2021-12-03] MEDS ORDERED: Spironolactone 100 MG TAB PO SCH (07:13)
[2021-12-03] MEDS ORDERED: Spironolactone 25 MG TAB PO SCH (08:00)
[2021-12-03 08:22] LABS: Hemoglobin 10.1 g/dL (14.0-18.0); Mean Corpuscular HGB CONC 32.7 g/dL (32.0-36.0); Mean Corpuscular Hemoglobin 31.3 pg (27.0-31.0); Mean Corpuscular Volume 95.8 fL (78.0-98.0); Mean Platelet Volume 8.5 fL (7.4-10.4); Platelet Count 271 thou/uL (130-400); RBC Distribution Width 14.8 % (11.5-14.5); Red Blood Cell (RBC) Count 3.23 mill/uL (4.70-6.10); White Blood Cell (WBC) Count 10.7 thou/uL (4.8-10.8)
[2021-12-03 08:52] LABS: Albumin 3.3 g/dL (3.4-4.8); Anion Gap 16 mmol/L (10-20); BUN (Urea Nitrogen) 48 mg/dL (8.4-25.7); BUN/Creatinine Ratio 23.41; Calc. Creatinine Clearance 49 mL/min (70-130); Carbon Dioxide 28 mmol/L (23-31); Chloride 98 mmol/L (98-107); Estimated GFR 34; Glucose 112 mg/dL (83-110); Phosphorus 4.4 mg/dL (2.3-4.7); Potassium 3.9 mmol/L (3.5-5.1); Sodium 138 mmol/L (136-145)
[2021-12-03] MEDS: Carvedilol 3.125 MG TAB PO SCH (09:18)
[2021-12-03] MEDS: Aspirin 325 mg Enteric Coated Tablet PO SCH (09:18)
[2021-12-03] MEDS: Sodium Bicarbonate Tab 325 MG TAB PO SCH (09:18)
[2021-12-03] MEDS: Tamsulosin HCl 0.4 MG CAP PO SCH (09:18)
[2021-12-03 11:45] VITALS: BP 111/62; TEMP 97.9
[2021-12-05 14:15] LABS: Actual Bicarbonate (HCO3a) 18.3 mEq/L (22-28); Analyzer IN Cardio OR; Base Excess (BEa) -8.3 mEq/L (-2.0 to +3.0); CO2 Tension 43.3 mmHg (35.0-45.0); Calcium, Ionized (arterial) 1.01 mmol/L (1.12-1.30); Carboxyhemoglobin (COHb) 0.8 gm% (0.0-3.0); Hemoglobin (Hb) 7.6 g/dL (14.0-18.0); O2 Tension (PaO2), arterial 451.8 mmHg (> 70.0)
[2021-12-05 14:28] LABS: Puncture Site Arterial Line; pH, Arterial 7.25 (7.35-7.45)
[2021-12-05 14:54] LABS: Actual Bicarbonate (HCO3a) 21.1 mEq/L (22-28); Analyzer IN Cardio OR; Base Excess (BEa) -4.1 mEq/L (-2.0 to +3.0); CO2 Tension 38.9 mmHg (35.0-45.0); Calcium, Ionized (arterial) 1.02 mmol/L (1.12-1.30); Carboxyhemoglobin (COHb) 0.3 gm% (0.0-3.0); Hemoglobin (Hb) 8.2 g/dL (14.0-18.0); O2 Tension (PaO2), arterial 435.9 mmHg (> 70.0); Potassium - ABG Lab 4.65 mmol/L (3.70-5.30); pH, Arterial 7.35 (7.35-7.45)
[2021-12-05 14:54] LABS: Actual Bicarbonate (HCO3a) 18.4 mEq/L (22-28); Analyzer IN Cardio OR; CO2 Tension 36.4 mmHg (35.0-45.0); Calcium, Ionized (arterial) 1.07 mmol/L (1.12-1.30); Carboxyhemoglobin (COHb) 0.7 gm% (0.0-3.0); Hemoglobin (Hb) 11.6 g/dL (14.0-18.0); O2 Tension (PaO2), arterial 472.1 mmHg (> 70.0); Potassium - ABG Lab 3.91 mmol/L (3.70-5.30); pH, Arterial 7.32 (7.35-7.45)
[2021-12-05 14:55] LABS: Actual Bicarbonate (HCO3a) 19.5 mEq/L (22-28); Actual Bicarbonate (HCO3a) 23.6 mEq/L (22-28); Analyzer IN Cardio OR; Base Excess (BEa) -2.5 mEq/L (-2.0 to +3.0); Base Excess (BEa) -5.8 mEq/L (-2.0 to +3.0); CO2 Tension 37.1 mmHg (35.0-45.0); CO2 Tension 47.4 mmHg (35.0-45.0); Calcium, Ionized (arterial) 0.99 mmol/L (1.12-1.30); Calcium, Ionized (arterial) 1.05 mmol/L (1.12-1.30); Carboxyhemoglobin (COHb) 0.3 gm% (0.0-3.0); Carboxyhemoglobin (COHb) 0.6 gm% (0.0-3.0); Hemoglobin (Hb) 7.2 g/dL (14.0-18.0); Hemoglobin (Hb) 7.7 g/dL (14.0-18.0); O2 Tension (PaO2), arterial 333.5 mmHg (> 70.0); O2 Tension (PaO2), arterial 402.8 mmHg (> 70.0); Potassium - ABG Lab 4.44 mmol/L (3.70-5.30); Potassium - ABG Lab 4.85 mmol/L (3.70-5.30); pH, Arterial 7.32 (7.35-7.45); pH, Arterial 7.34 (7.35-7.45)
[2021-12-05 14:55] LABS: Actual Bicarbonate (HCO3a) 20.5 mEq/L (22-28); Analyzer IN Cardio OR; Base Excess (BEa) -5.5 mEq/L (-2.0 to +3.0); CO2 Tension 42.6 mmHg (35.0-45.0); Calcium, Ionized (arterial) 1.02 mmol/L (1.12-1.30); Carboxyhemoglobin (COHb) 0.3 gm% (0.0-3.0); Hemoglobin (Hb) 9.4 g/dL (14.0-18.0); O2 Tension (PaO2), arterial 409.2 mmHg (> 70.0); Potassium - ABG Lab 4.62 mmol/L (3.70-5.30)
[2021-12-05 14:55] LABS: Actual Bicarbonate (HCO3v) 26 mEq/L (22-28); Analyzer IN Cardio OR; Base Excess -0.7 mEq/L (-2.0 to +3.0); Calcium, Ionized (venous) 1.01 mmol/L (1.16-1.32); Chloride (VBG) 105 mmol/L (98-106); Hemoglobin (Hb) 7.6 g/dL (12.6-17.4); Potassium (VBG) 4.98 mmol/L (3.70-5.30); Sodium 136.3 mmol/L (133-146); pH (venous) 7.32 (7.32-7.43)
[2021-12-05 14:56] LABS: Puncture Site Arterial Line
[2021-12-05 14:57] LABS: Puncture Site Arterial Line
[2021-12-05 14:58] LABS: Puncture Site Arterial Line
[2021-12-05 14:59] LABS: Puncture Site Arterial Line
== END 2021-12-03 13:37 | DRG 236 ==
LOC: SURG A 11-26 05:24 → CCU 11-26 10:25 → 2NO 11-30 16:44
PROVIDERS: ADMIT Thoracic Surgery (Cardiothoracic Vascular Surgery); ATTEND Thoracic Surgery (Cardiothoracic Vascular Surgery)
PROC: 02100Z9 Bypass Coronary Artery, One Artery from Left Internal Mammary, Open Approach (ICD-10-PCS; principal; 2021-11-26)
PROC: 021209W Bypass Coronary Artery, Three Arteries from Aorta with Autologous Venous Tissue, Open Approach (ICD-10-PCS; 2021-11-26)
PROC: 06BQ4ZZ Excision of Left Saphenous Vein, Percutaneous Endoscopic Approach (ICD-10-PCS; 2021-11-26)
PROC: 5A1221Z Performance of Cardiac Output, Continuous (ICD-10-PCS; 2021-11-26)
PROC: 02L70CK Occlusion of Left Atrial Appendage with Extraluminal Device, Open Approach (ICD-10-PCS; 2021-11-26)
PROC: 30233K1 Transfusion of Nonautologous Frozen Plasma into Peripheral Vein, Percutaneous Approach (ICD-10-PCS; 2021-11-26)
PROC: 30233N1 Transfusion of Nonautologous Red Blood Cells into Peripheral Vein, Percutaneous Approach (ICD-10-PCS; 2021-11-26)
PROC: 6A550Z2 Pheresis of Platelets, Single (ICD-10-PCS; 2021-11-26)
PROC: 0WCC0ZZ Extirpation of Matter from Mediastinum, Open Approach (ICD-10-PCS; 2021-11-27)
DX: I25.10 Atherosclerotic heart disease of native coronary artery without angina pectoris (principal); N17.9 Acute kidney failure, unspecified; E87.2 Acidosis; D62 Acute posthemorrhagic anemia; I50.42 Chronic combined systolic (congestive) and diastolic (congestive) heart failure; J90 Pleural effusion, not elsewhere classified; T85.838A Hemorrhage due to other internal prosthetic devices, implants and grafts, initial encounter; Y83.8 Other surgical procedures as the cause of abnormal reaction of the patient, or of later complication, without mention of misadventure at the time of the procedure; R79.1 Abnormal coagulation profile; N18.30 Chronic kidney disease, stage 3 unspecified; E87.6 Hypokalemia; R53.81 Other malaise; D63.1 Anemia in chronic kidney disease; R53.1 Weakness; I25.5 Ischemic cardiomyopathy; K21.9 Gastro-esophageal reflux disease without esophagitis; Z88.8 Allergy status to other drugs, medicaments and biological substances; Z88.1 Allergy status to other antibiotic agents; Z88.0 Allergy status to penicillin; Z90.49 Acquired absence of other specified parts of digestive tract; Z98.41 Cataract extraction status, right eye; Z98.42 Cataract extraction status, left eye; Z82.49 Family history of ischemic heart disease and other diseases of the circulatory system
CPT/HCPCS: 36415; 36416; 36430; 71045; 80048; 80069; 82040; 82805; 83735; 85025; 85027; 85610; 85730; 86850; 86900; 86901; 87811; 93005; 93010; 94002; 94003; 94150; C1751; C1776; J1100; J1250; J1642; J1644; J1815; J1940; J1956; J2001; J2150; J2250; J2260; J2370; J2405; J2440; J2704; J2720; J3010; J3370; J3475; J3480; J7120; P9016; P9035; P9045; P9059; Q0162; S0017; S0028

== ENCOUNTER 2022-07-06 13:54 | Outpatient (CLI) | payer MEDICARE, BC | END 2022-07-06 13:55 | disposition home or self-care (01) | LOC: RAD 13:54 | PROVIDERS: ATTEND Thoracic Surgery (Cardiothoracic Vascular Surgery) | DX: I25.10 Atherosclerotic heart disease of native coronary artery without angina pectoris (principal) | CPT/HCPCS: 71046 ==

== ENCOUNTER 2022-12-09 05:48 | Day surgery (SDC) | payer MEDICARE, BC ==
[2022-12-07 14:34] VITALS: BMI 31.1
[2022-12-09] MEDS ORDERED: Ketamine 50 MG/ML (10ML VIAL) ONE (07:34)
[2022-12-09] MEDS ORDERED: Lidocaine 1% PF 5 ML VIAL ONE (07:37)
[2022-12-09] MEDS ORDERED: PROPOFOL 200 MG/20 ML VIAL ONE (07:37)
== END 2022-12-09 08:47 | disposition home or self-care (01) ==
LOC: SDC 05:48
PROVIDERS: ATTEND Internal Medicine Gastroenterology
PROC: 0DBE8ZX Excision of Large Intestine, Via Natural or Artificial Opening Endoscopic, Diagnostic (ICD-10-PCS; principal; 2022-12-09)
DX: K51.00 Ulcerative (chronic) pancolitis without complications (principal); I50.9 Heart failure, unspecified; K21.9 Gastro-esophageal reflux disease without esophagitis; E07.9 Disorder of thyroid, unspecified; E78.00 Pure hypercholesterolemia, unspecified; F41.8 Other specified anxiety disorders; D64.9 Anemia, unspecified; Z79.890 Hormone replacement therapy; Z79.82 Long term (current) use of aspirin; Z79.899 Other long term (current) drug therapy; Z88.0 Allergy status to penicillin; Z95.5 Presence of coronary angioplasty implant and graft; Z88.8 Allergy status to other drugs, medicaments and biological substances
CPT/HCPCS: 88305; J2704

== ENCOUNTER 2023-05-10 08:43 | Outpatient (CLI) | payer MEDICARE, BC | END 2023-05-10 08:44 | disposition home or self-care (01) | LOC: BICULT 08:43 | PROVIDERS: ATTEND Urology | DX: N13.30 Unspecified hydronephrosis (principal) | CPT/HCPCS: 76770 ==

== ENCOUNTER 2025-02-08 09:30 | Emergency (ER) | payer MEDICARE, BC ==
[2025-02-08 10:13] LABS: #Basophils 0.07 10x3/uL (0.0-0.2); #Eosinophils 0.29 10x3/uL (0.0-0.7); #Monocytes 0.61 10x3/uL (0.11-0.59); #Neutrophils 8.11 10x3/uL (1.40-6.50); %Basophils 0.7 % (0.0-1.0); %Eosinophils 3.0 % (0.0-10.0); %Lymphocytes 5.1 % (21.0-51.0); %Monocytes 6.3 % (0.0-10.0); %Neutrophils 84.5 % (42.0-75.0); Hematocrit 34.7 % (42.0-52.0); Hemoglobin 11.1 g/dL (14.0-18.0); Mean Corpuscular Hemoglobin 29.3 pg (27.0-31.0); Mean Corpuscular Volume 91.6 fL (78.0-98.0); Platelet Count 228 10x3/uL (130-400); Red Blood Cell (RBC) Count 3.79 mill/uL (4.70-6.10); White Blood Cell (WBC) Count 9.61 10x3/uL (4.8-10.8)
[2025-02-08 10:33] LABS: ALT (SGPT) 10 U/L (Less than 45); AST (SGOT) 25 U/L (11-34); Albumin 2.7 g/dL (3.1-4.5); Alkaline Phosphatase 161 U/L (40-110); Anion Gap 11 mmol/L (10-20); BUN (Urea Nitrogen) 28 mg/dL (8.4-25.7); Bilirubin, Total 0.3 mg/dL (0.3-1.2); Calc. Creatinine Clearance 0 mL/min (70-130); Calcium 8.3 mg/dL (7.8-10.44); Carbon Dioxide 19 mmol/L (23-31); Chloride 111 mmol/L (98-107); Globulin 3.2 g/dL (2.4-3.5); Glucose 136 mg/dL (83-110); Potassium 4.0 mmol/L (3.5-5.1); Sodium 137 mmol/L (136-145)
[2025-02-08 11:38] LABS: Bacteria/HPF 2+ HPF (None Seen); CAUTI Indications for Culture Dysuria,urgency,freq; Glucose, Urine (Dipstick) Greater than 1000 mg/dL (Negative); Leukocyte 500 Leu/uL (Negative); Protein, Urine (Dipstick) 20 mg/dL (Neg-Trace); Specific Gravity, Urine 1.012 (1.002-1.036); WBC/HPF Greater than 50 HPF (0-3)
[2025-02-08 11:39] LABS: Urine Culture Reflex Yes Yes
[2025-02-08] MEDS ORDERED: cefTRIAXone (ROCEPHIN) 2 GM VIAL ONE (12:11)
== END 2025-02-08 18:24 ==
LOC: ERS 09:30
DX: N39.0 Urinary tract infection, site not specified (principal); R53.1 Weakness; I13.0 Hypertensive heart and chronic kidney disease with heart failure and stage 1 through stage 4 chronic kidney disease, or unspecified chronic kidney disease; I50.9 Heart failure, unspecified; N18.9 Chronic kidney disease, unspecified; I25.10 Atherosclerotic heart disease of native coronary artery without angina pectoris; E03.9 Hypothyroidism, unspecified; K21.9 Gastro-esophageal reflux disease without esophagitis; E78.00 Pure hypercholesterolemia, unspecified; Z79.82 Long term (current) use of aspirin; Z79.899 Other long term (current) drug therapy; Z95.1 Presence of aortocoronary bypass graft
CPT/HCPCS: 71045; 80053; 81001; 83605; 85025; 87040; 87086; 93005; J0696; 87077; 96365

== ENCOUNTER 2025-04-10 11:32 | Day surgery (SDC) | payer MEDICARE, BC ==
[2025-04-09 13:25] VITALS: BMI 28.1
[2025-04-10] MEDS ORDERED: Lidocaine 1% PF 5 ML VIAL ONE (13:40)
[2025-04-10] MEDS ORDERED: PROPOFOL 200 MG/20 ML VIAL ONE (13:50)
== END 2025-04-10 15:22 ==
LOC: SDC 11:32
PROVIDERS: ATTEND Internal Medicine Gastroenterology
PROC: 0DJ08ZZ Inspection of Upper Intestinal Tract, Via Natural or Artificial Opening Endoscopic (ICD-10-PCS; principal; 2025-04-10)
PROC: 0DBP8ZX Excision of Rectum, Via Natural or Artificial Opening Endoscopic, Diagnostic (ICD-10-PCS; 2025-04-10)
DX: D64.9 Anemia, unspecified (principal); K64.4 Residual hemorrhoidal skin tags; K21.9 Gastro-esophageal reflux disease without esophagitis; K92.1 Melena; K51.00 Ulcerative (chronic) pancolitis without complications; E78.5 Hyperlipidemia, unspecified; F41.9 Anxiety disorder, unspecified; F32.A Depression, unspecified; Z95.1 Presence of aortocoronary bypass graft; Z95.810 Presence of automatic (implantable) cardiac defibrillator; Z79.82 Long term (current) use of aspirin; Z79.84 Long term (current) use of oral hypoglycemic drugs; Z79.899 Other long term (current) drug therapy; Z88.0 Allergy status to penicillin; Z88.8 Allergy status to other drugs, medicaments and biological substances
CPT/HCPCS: 43235; 45380; J2704; 88305